=== PATIENT | male | born 1975 | race Caucasian/White ===

== ENCOUNTER 2020-09-30 13:35 | Emergency (ER) | payer MEDICAID, SELFPAY ==
--- NOTE | ~2020-09-30 | XR_ITS ---
EXAMINATION: XR CHEST CLINICAL INFORMATION: Shortness of breath COMPARISON: None TECHNIQUE: Frontal view of the chest was obtained. FINDINGS: The cardiac silhouette is appears upper normal in size. This may be related to apical lordotic film technique. There is an abnormal left paraspinal soft tissue density adjacent to the lower thoracic spine. Hilar and mediastinal contours are otherwise unremarkable. The lungs are clear. There is no pleural effusion or pneumothorax. Degenerative changes of the thoracic spine. XR/XR chest 1V IMPRESSION: Upper normal-size cardiac silhouette. This may be due to apical lordotic film technique. Question abnormal left paraspinal density. Follow-up PA and lateral chest x-ray recommended.
--- NOTE | ~2020-09-30 | XR_ITS ---
EXAMINATION: XR CHEST CLINICAL INFORMATION: Follow-up abnormal PA chest x-ray. Shortness of breath. COMPARISON: AP portable chest x-ray from earlier the same day TECHNIQUE: 2 views of the chest were obtained. FINDINGS: The cardiac and mediastinal contours are normal. The lungs are clear. There is no pleural effusion or pneumothorax. There are degenerative changes of the thoracic spine. Bony structures are otherwise unremarkable. XR/XR chest 2V IMPRESSION: Unremarkable examination.
[2020-09-30 14:01] VITALS: BP 150/92; PULSE 63; RESP 18; TEMP 36.8; O2SAT 95; BMI 41.1
[2020-09-30 14:40] LABS: MANUAL DIFF FLAG NO
[2020-09-30 14:42] LABS: Basophils Percent Auto 0.6 % (0-2); Eosinophils Absolute Auto 0.2 X10*3/uL (0.0-0.4); Eosinophils Percent Auto 2.9 % (0-4); Hematocrit 47.9 % (42-52); Hemoglobin 16.1 g/dl (14.0-18.0); Imm Gran Abs Auto 0.03 X10*3/uL (0.00-0.03); Imm Gran Pct Auto 0.4 % (0.0-0.4); Lymphocytes Percent Auto 29.9 % (20-40); Mean Corpuscular HGB Conc 33.6 g/dl (31.0-36.0); Mean Corpuscular Hemoglobin 30.4 pg (27.0-33.0); Mean Corpuscular Volume 90.4 fL (80-98); Monocytes Absolute Auto 0.6 X10*3/uL (0.1-1.2); Neutrophils Absolute Auto 3.9 X10*3/uL (2.0-8.3); Neutrophils Percent Auto 57.2 % (45-73); Platelet Count 258 X10*3/uL (160-400); Red Cell Distribution Width 12.4 % (11.0-16.0); White Blood Count 6.8 X10*3/uL (4.8-10.8)
[2020-09-30 15:07] LABS: Anion Gap 11 (12-20); Blood Urea Nitrogen 15 mg/dL (9-16); Calcium 9.2 mg/dL (8.4-10.2); Carbon Dioxide 27 mmol/L (22-29); Chloride 106 mmol/L (96-108); Creatinine Clr Calc Pharmacy 118.1; Estimated Glomerular Filt Rate > 60; Glucose Random 96 mg/dL (60-115); Sodium 140 mmol/L (135-145)
[2020-09-30 15:14] LABS: Troponin-I High Sensitivity 3.7 ng/L (<3.5-35.0)
[2020-09-30 15:57] VITALS: BP 149/87; PULSE 55; RESP 18
--- NOTE | 2020-09-30 16:02 | ED.GENADULT ---
HPI - General Adult General Chief complaint: General Medical Stated complaint: HIGH BP Time Seen by Provider: 09/30/20 15:52 Source: patient Mode of arrival: ambulatory History of Present Illness HPI narrative: 45-year-old male with no significant past medical history sent to ED by PCP for hypertension. Patient reports elevated blood pressure during offices visits in the past, decided to check blood pressure with home machine yesterday was 180s/110, this morning again was 190s/110 and was instructed to come to ED. Reports intermittent headaches x6 months, and mild SOB. Denies headache at present. Denies visual change/loss, lightheadedness/dizziness, chest pain, cough, abdominal pain, nausea/vomiting, LE edema Related Data Previous Rx's Medication Instructions Recorded hydrochlorothiazide 12.5 mg PO DAILY #14 cap 09/30/20 Allergies Allergy/AdvReac Type Severity Reaction Status Date / Time naproxen [NAPROXEN] Allergy Unknown UNKNOWN Unverified 11/30/19 19:41 Review of Systems Review of Systems: Constitutional: No Fever, No Chills, No Fatigue, No Malaise ENT/Mouth: No Ear Pain, No Nasal Congestion Eyes: No Eye Pain, No Vision Changes Cardiovascular: No Chest Pain, + SOB, No Edema, No Palpitations Respiratory: No Cough, No Sputum Gastrointestinal: No Nausea, No Vomiting, No Diarrhea, No Constipation, No Abdominal pain Genitourinary: No Dysuria, No Hematuria Musculoskeletal: No joint pain, No Myalgias, No Joint Swelling Skin: No Skin Lesions, No rash Neuro: No Weakness, No Numbness, No Paresthesias, No Dizziness, + Headache (not at present) Yes all other systems are reviewed and are negative Neurologic: Denies Abnormal speech present COUNT INCLUDES THE [facility] Past Medical History Attestation statement: The following information was validated with the patient. Social History Social History Advance Directives: No Advance Directives Information Provided: Yes Physical Exam Vital Signs: Vital Signs: Last Vital Signs Temp 98.2 F 09/30/20 14:01 Pulse 56 09/30/20 17:02 Resp 16 09/30/20 17:02 BP 155/91 H 09/30/20 17:02 Pulse Ox 95 09/30/20 17:02 Body Mass Index 41.1 Const: General: cooperative, healthy appearing, no acute distress, well developed, alert and awake Orientation/consciousness: patient oriented x3 Limitations: no limitations HENMT: Head: Yes normal to inspection Ears: hearing grossly normal bilaterally General nose exam: Normal external nose present Face and sinus: Yes normal facial exam Eyes: General: appearance normal, both eyes and all related structures EOM: EOMs intact bilaterally Neck: Neck: Yes normal visual inspection and Yes no meningeal signs Resp: Effort & Inspection: normal respiratory effort Auscultation: clear to auscultation bilaterally, no rales, no rhonchi and no wheezes Cardio: Rate: regular rate Heart sounds: S1 normal heart sound present and S2 normal heart sound present GI: Inspection: Yes normal to inspection Palpation (GI): Soft to palpation, nontender, no guarding and not rigid Skin: Rashes: no rashes Wounds: no wounds Neuro: General: patient oriented x3, gait normal, tone normal, moves all extremities, no meningeal signs, no focal motor deficits and CN's II-XI intact bilaterally Cranial nerves: Yes CN's II-XII intact bilaterally Cognition (Neuro): normal cognition Speech: No Abnormal speech present Gait exam (Neuro): Normal gait present Motor exam (neuro): 5/5 motor strength present throughout Extrem: General: Yes normal to inspection and Yes no pedal edema Course Course Course Narrative: -labs unremarkable including negative troponin -CXR negative 1706-XR chest 1V IMPRESSION: Upper normal-size cardiac silhouette. This may be due to apical lordotic film technique. Question abnormal left paraspinal density. Follow-up PA and lateral chest x-ray recommended. > will obtain two view CXR --ED care transferred to JAC[facility] Roman pending CXR results and anticipated DC home Medical Decision Making [facility] Narrative Medical decision making narrative: 45-year-old male with no significant past medical history sent to ED by PCP for hypertension. Patient reports elevated blood pressure during offices visits in the past, decided to check blood pressure with home machine yesterday was 180s/110, this morning again was 190s/110 and was instructed to come to ED. On exam blood pressure 150/90, NAD, nontoxic appearing, no focal neuro deficits/ambulating with steady gait. Low concern for hypertensive urgency/emergency. Will obtain basic labs to rule out infectious etiology/ACS and likely initiate antihypertensive Lab Data Result diagrams: 09/30/20 14:37 09/30/20 14:37 Labs: Lab Results 09/30/20 09/30/20 09/30/20 Range/Units 14:37 14:37 14:37 WBC 6.8 (4.8-10.8) X10*3/uL RBC 5.30 (4.60-5.80) X10*6/uL Hgb 16.1 (14.0-18.0) g/dl Hct 47.9 (42-52) % MCV 90.4 (80-98) fL MCH 30.4 (27.0-33.0) pg MCHC 33.6 (31.0-36.0) g/dl RDW 12.4 (11.0-16.0) % Plt Count 258 (160-400) X10*3/uL MPV 10.0 (9.4-12.4) fL Immature Gran % (Auto) 0.4 (0.0-0.4) % Neut % (Auto) 57.2 (45-73) % Lymph % (Auto) 29.9 (20-40) % Ellis % (Auto) 9.0 (2-11) % Eos % (Auto) 2.9 (0-4) % Baso % (Auto) 0.6 (0-2) % Lymph # (Auto) 2.0 (1.2-4.9) X10*3/uL Ellis # (Auto) 0.6 (0.1-1.2) X10*3/uL Eos # (Auto) 0.2 (0.0-0.4) X10*3/uL Baso # (Auto) 0.0 (0.0-0.2) X10*3/uL Abs Immat Gran (auto) 0.03 (0.00-0.03) X10*3/uL Absolute Neuts (auto) 3.9 (2.0-8.3) X10*3/uL Absolute Nucleated RBC 0.000 (0.0-0.012) X10*3/uL Nucleated RBC % (auto) 0.0 (0.0-0.2) /100WBC Sodium 140 (135-145) mmol/L Potassium 4.0 (3.3-5.1) mmol/L Chloride 106 (96-108) mmol/L Carbon Dioxide 27 (22-29) mmol/L Anion Gap 11 L (12-20) BUN 15 (9-16) mg/dL Creatinine 1.07 (0.5-1.4) mg/dL Estim Creat Clear Calc 118.1 Estimated GFR > 60 Random Glucose 96 (60-115) mg/dL Calcium 9.2 (8.4-10.2) mg/dL Magnesium 2.1 (1.6-2.6) mg/dL Total Bilirubin 0.6 (0.0-1.0) mg/dL Direct Bilirubin 0.2 (0.0-0.5) mg/dL AST 21 (5-37) U/L ALT 28 (0-40) U/L Alkaline Phosphatase 76 (39-117) U/L Troponin I High Sens 3.7 (<3.5-35.0) ng/L B-Natriuretic Peptide 57 (<100) pg/mL Total Protein 7.3 (6.5-8.0) g/dL Albumin 4.4 (3.5-5.0) g/dL Discharge Plan Discharge Clinical Impression: Hypertension Patient Disposition: Home, Self-Care Instructions: Hypertension (ED) Additional Instructions: Your blood work was unremarkable today in the emergency department Your blood pressure is elevated, hydrochlorothiazide is an antihypertensive medication, take as prescribed It is important for you to closely monitor your blood pressure, you need to see your primary care doctor in the next couple days If her blood pressure is continuously high, or continues staying low please return to the emergency department If you develop chest pain, shortness of breath, fever, swelling in her legs, lightheadedness/dizziness, return to the ED Prescriptions: New hydrochlorothiazide 12.5 mg capsule 12.5 mg PO DAILY Qty: 14 RF: 0 Referrals: Giovany Reaves MD [Primary Care Provider] - 2 days
[2020-09-30 16:30] LABS: Alanine Aminotransferase 28 U/L (0-40); Albumin Level 4.4 g/dL (3.5-5.0); Alkaline Phosphatase 76 U/L (39-117); Aspartate Amino Transferase 21 U/L (5-37); Bilirubin Direct 0.2 mg/dL (0.0-0.5); Bilirubin Total 0.6 mg/dL (0.0-1.0); Magnesium 2.1 mg/dL (1.6-2.6); Total Protein 7.3 g/dL (6.5-8.0)
[2020-09-30 16:36] LABS: B Type Natriuretic Peptide 57 pg/mL (<100)
[2020-09-30 17:02] VITALS: BP 155/91; PULSE 56; RESP 16; O2SAT 95
== END 2020-09-30 18:03 | disposition home or self-care (01) ==
PROVIDERS: Physician Assistant; Emergency Provider Emergency Medicine; PCP Internal Medicine
DX: I10 Essential (primary) hypertension (principal); R06.02 Shortness of breath
CPT/HCPCS: 36415; 71045; 71046; 80048; 80076; 83735; 83880; 84484; 85025; 99284

== ENCOUNTER 2021-07-23 09:26 | Emergency (ER) | payer OTHER, SELFPAY ==
[2021-07-23 09:39] VITALS: BP 130/91; PULSE 71; RESP 16; TEMP 36.2; O2SAT 97; BMI 43.0
--- NOTE | 2021-07-23 11:06 | ED_ITS ---
HPI - Back Pain/Injury General Chief Complaint: Back Pain/Injury Stated Complaint: back pain needs inflamatory injection Time Seen by Provider: 07/23/21 11:00 Source: patient Mode of arrival: ambulatory Limitations: no limitations History of Present Illness HPI Narrative: 46-year-old male with a past medical history of chronic back pain with herniated discs and old fractures approximately 3 years ago from a fall presenting to the ED complaining of acute on chronic lower back pain radiating to his right buttock/leg for the past few days worse today. Reports he has been taking [id number] medication no symptomatic relief. Reports this is similar to his prior back pain. He denies any fevers, chills, dizziness, headaches, neck pain/stiffness, trouble swallowing or breathing, chest pain or shortness of breath, dyspnea on exertion, orthopnea, palpitations, paresthesias, nausea/vomiting/diarrhea or constipation, black or bloody stools, abdominal pain, saddle anesthesia, urinary or bowel incontinence or retention, falls, rashes, IV drug use or any other symptoms complaints or concerns at this time. Reports that Toradol usually helps and he just wanted a Toradol injection. Denies any other symptoms complaints or concerns at this time. MD elicited complaint: back pain Pertinent past history: prior back pain Onset (ago): day(s) (Past few days worse today) Timing: constant and progressively worsening Severity: moderate Similar Symptoms Previously: Yes Quality: aching and spasming Location: lumbar spine Radiation: buttocks and right upper leg Exacerbating factors: movement, walking and lifting Relieving factors: none Context: unknown Associated symptoms: denies other symptoms Work related injury: No Related Data Previous Rx's Medication Instructions Recorded hydrochlorothiazide 12.5 mg capsule 12.5 mg PO DAILY #14 cap 09/30/20 ketorolac 10 mg tablet 10 mg PO Q8H PRN #14 tab 07/23/21 Allergies Allergy/AdvReac Type Severity Reaction Status Date / Time naproxen [NAPROXEN] Allergy Unknown UNKNOWN Verified 07/23/21 09:39 Review of Systems Review of Systems: Constitutional : No trauma, No Weight loss, No Fever, No Chills, ENT/Mouth : No Hearing loss, No Ear Pain, No Nasal Congestion, No Sinus Pain, No Hoarseness, No sore throat, No Rhinorrhea, No Swallowing Difficulty Cardiovascular : No Chest Pain, No SOB Respiratory : No Cough, No Dyspnea Gastrointestinal : No Nausea, No Vomiting, No Diarrhea, No abdominal Pain, No Hematochezia, No Melena Genitourinary : No Dysuria, No Urinary Frequency, No Hematuria, No Urinary or Bowel Incontinence/retention Musculoskeletal : + Back pain, No neck pain, No joint stiffness, No joint swelling Skin : No Skin Lesions, No rash or signs of infection Neuro : No Weakness, No radiation, No Numbness, No Paresthesias, No headache, no loss of bowel or bladder incontinence, no saddle anesthesia, Focal weakness, No radiation Denies history of IV drug usage. Yes all other systems are reviewed and are negative [facility] Past Medical History Attestation statement: The following information was validated with the patient. Medical History Back disorder HTN (hypertension) Social History Social History Advance Directives: No Advance Directives Information Provided: No Physical Exam Vital Signs: Vital Signs: Last Vital Signs Temp 97.1 F 07/23/21 09:39 Pulse 71 07/23/21 09:39 Resp 16 07/23/21 09:39 BP 130/91 H 07/23/21 09:39 Pulse Ox 97 07/23/21 09:39 BMI result Body Mass Index 43.0 vital signs have been reviewed as normal and appeared to be correct. Blood pressure normal. Heart rate normal. Respiration rate normal. Temperature normal. Oxygen saturation normal. Appearance: Alert. Oriented X3. No acute distress. Head: Normal external exam. Normocephalic. Atraumatic. No Lane signs noted. No raccoon eyes noted Eyes: PERRLA. EOMI. Conjunctiva and sclera normal. Eyelids normal. ENT: EAC normal. TM's Normal. Pharynx normal. Uvula midline. Moist mucous membranes. No trismus noted. No drooling noted. No muffled voice noted. Neck: Normal inspection. Neck supple. FROM. No adenopathy. Thyroid Normal. No meningeal signs. No neck mass noted. CVS: Normal heart rate and rhythm. Heart sound normal. No murmurs noted. Pulses normal throughout. Respiratory: No respiratory distress. Painless inspiration. Breath sounds normal. No wheezes/rales/rhonchi noted. Chest nontender. No accessory muscle usage noted or decreased air movement noted. Abdomen: Soft and nontender. Bowel sounds normal in all 4 quadrants. No distention noted. No organomegaly noted. No visible injury noted. Back: No CVA tenderness. Full range of motion noted. No obvious deformities, or edema. Mild para-spinal muscular tenderness from lumbar region to coccyx. Full ROM in back and lower extremities. 5/5 strength hip extension/flexion, abduction, adduction. Mild Lumbar pain with hip flexion against resistance. St raight leg raise test negative on right; Straight leg raise test negative on left; Reflexes normal ankle and knee bilaterally; EHL motor strength normal bilaterally. No rashes/lesion/induration/fluctuance or signs infection noted. Skin: Skin warm and dry. Normal skin color. Normal skin turgor. No rashes/lesions/lacerations noted. Extremities: No lower extremity edema. Extremities exhibit normal range of motion. Extremities nontender. Neuro: Oriented X 3. No motor deficit. No sensory deficit. Reflexes normal. Patient has a normal steady gait. Course Course Course Narrative: Pt c likely muscular pain, but could be herniated disc. Neuro exam shows no deficits. Not c/w AAA/epidural abscess/dissection.No high risk Hx (Incont, fever, immunosupp, recent surgery/LP, coag, signif trauma, wt loss, puls mass, hx/o Ca, TB, or IVDU) to warrant MRI/CT today. Not c/w Pyelo/UTI/kidney stone/ spinal fx. Not cauda equina syndrome. Imaging not currently indicated. DC c meds and f/u. MDM - Back Pain/Injury Medical Records Attestation: I reviewed the patient's medical records. Discharge Plan Discharge Clinical Impression: Lumbar radiculopathy, Chronic back pain Patient Disposition: Home, Self-Care Instructions: Lumbar Radiculopathy (ED), Lower Back Exercises (ED) Prescriptions: New ketorolac 10 mg tablet 10 mg PO Q8H PRN (Reason: pain of back) Qty: 14 0RF Rx Instructions: Patient given 1st dose in the ED by IM and tolerated well No Action hydrochlorothiazide 12.5 mg capsule 12.5 mg PO DAILY Qty: 14 0RF Referrals: Physician,Unknown J [Primary Care Provider] - 2 days (your pcp)
[2021-07-23] MEDS: Ketorolac Tromethamine 60 MG/2 ML VIAL IM (11:10)
== END 2021-07-23 11:18 | disposition home or self-care (01) ==
PROVIDERS: Emergency Provider Emergency Medicine
DX: M54.16 Radiculopathy, lumbar region (principal); M54.50 Low back pain, unspecified; Z79.899 Other long term (current) drug therapy
CPT/HCPCS: 96372; 99284; J1885

== ENCOUNTER → 2023-03-01 15:31 | Outpatient (BNVA) | payer OTHER, SELFPAY | PROVIDERS: PCP Family Medicine; Visit Provider Physician Assistant ==

== ENCOUNTER 2023-03-03 08:04 | Outpatient (AMB) | payer OTHER, SELFPAY ==
--- NOTE | 2023-03-03 09:42 | MHC.OFFVISWM ---
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 HPI Details Start time: 9.30am, End time: 10.27am ?I spent 52 minutes speaking with the patient on the phone plus an additional 5 minutes reviewing and updating records for a total of 57 minutes HPI Comments History of Present Illness Details Previous weight loss efforts: low carb diet, calorie counting Wakes up: Week days 5.45am and weekends: 7.30am, Sleeps: week days: 9.30pm-10pm, weekends: 12am Breakfast: skips Lunch: 12-1pm (fast food) Dinner: 5pm (potato salad, sandwich, rice and beans, pasta) snacks: 7-8pm (cookies or cupcake) Exercise: none Fluids: Coffee 12oz/d (creamer), tea: none, soda: regular coke or pepsi, juice: daily, ETOH: on Fridays 2 beers PFSH Medical History (Updated 03/03/23 @ 09:48 by Joseph Reis MD) Insomnia Sleep apnea Morbid obesity Back disorder HTN (hypertension) Physical Exam Vital Signs: BMI result Body Mass Index 45.6 Assessment & Plan Assessment & Plan (1) Morbid obesity: Code(s): E66.01 - Morbid (severe) obesity due to excess calories Plan: 1.? Plan for lap sleeve gastrectomy. If diaphragmatic or ventral hernias are present at time of surgery, these will be repaired laparoscopically as well. Risks and complications were discussed in detail including possible conversion to an open procedure, anastomotic leak, bleeding requiring transfusion, small bowel obstruction, , DVT and pulmonary embolism, cardiac, or pulmonary complications, as computer terminal operator complications such as anastomotic ulcer, insufficient weight loss and vitamin deficiencies. I emphasized the importance of close follow-up, adherence to instructions and good communication. 2. Nutritional counseling. A) BUSINESS DAYS: Start with ONE CELEBRATE REBUILD protein shake (ONE scoop in 8oz almond milk, buy at [facility] [employer]) at 6am-8am, 3 Celebrate protein bars (buy at [facility] [employer]) at 9am-11am, 12pm-2pm and 3pm-5pm, dinner at 6pm (12 forks of protein and 12 forks of salad/vegetables) and one Isopure INFUSIONS protein shake (HALF scoop in 8oz water, buy at [facility]) at 8pm-10pm. B) WEEKENDS: Start with ONE CELEBRATE REBUILD protein shake (ONE scoop in 8oz almond milk, buy at [facility] [employer]) at 8am-10am, 2 Celebrate protein bars (buy at [facility] [employer]) at 11am-1pm and 2pm-4pm, dinner at 5pm (12 forks of protein and 12 forks of salad/vegetables), one Isopure INFUSIONS protein shake (HALF scoop in 8oz water) at 7pm-9pm and one more Celebrate bar at 10pm-12am. So you do 2 protein shakes, 3 protein bars and one meal per day. Meal to include lean meat (beef, fish, pork, turkey, chicken), or tuvaluan yogurt, or egg whites, or beans with a salad with olive oil and fruits (berries, pears, apples, kiwi). Avoid salt, breads, potatoes, rice, pasta, desserts. 3. Each shake would be drunk slowly, like coffee in a period of 2 hours. 4. Cut each bar in 4 pieces and eat each piece in 30min ?to make each bar last 2 hours. 5. I emphasized the importance of measuring accurately the food portion and measure it when serving the food in plate 6. The meal portions include 12 full-size forks of meat and 12 full-size forks of salad. You always eat the meat portion but you can replace up to 6 forks for salad/vegetables with rice, potatoes or pasta, or a fruit ?if you like. The less you do it the better weight loss will be. 7. One full-size fork is what it can be scooped on the fork without falling aside and not what can be bit with the fork. Use regular forks like those you find in a typical restaurant. 8.? Please send me weight measurements as soon as possible and then once a week. Always include your diet and exercise plan. 9. Start walking outside daily, tracking calories with a goal of 300 calories per day, daily. Goal is to burn 2000 calories per week on exercise, which means either 300 calories daily, or 400 calories 5 days per week, or 500 calories 4 days per week, or 650 calories 3 days per week. 10. The best choice would be to purchase a stationary bike, elliptical or treadmill at home that can track calories. Let me know if you do so I can give you an exercise plan. 11.?Goal is to lose at least 1.5-2lbs per week 12. Goal to lose 10% of your weight before surgery, which is about 30lbs. Ultimate weight goal: 274lbs before surgery 13. Please follow the diet plan exactly without any change. If you don't like something about the plan or you feel hungry you need to communicate with me so I can help you revise the plan. You should not change the plan yourself. Orders: Orders Hemoglobin A1c Today E66.01 - Morbid (severe) obesity due to excess calories, G47.30 - Sleep apnea, unspecified, I10 - Essential (primary) hypertension H Pylori Breath Test Today E66.01 - Morbid (severe) obesity due to excess calories, G47.30 - Sleep apnea, unspecified, I10 - Essential (primary) hypertension Vitamin B1 Today E66.01 - Morbid (severe) obesity due to excess calories, G47.30 - Sleep apnea, unspecified, I10 - Essential (primary) hypertension Vitamin A Today E66.01 - Morbid (severe) obesity due to excess calories, G47.30 - Sleep apnea, unspecified, I10 - Essential (primary) hypertension TSH reflex Free T4 Today E66.01 - Morbid (severe) obesity due to excess calories, G47.30 - Sleep apnea, unspecified, I10 - Essential (primary) hypertension Ferritin Today E66.01 - Morbid (severe) obesity due to excess calories, G47.30 - Sleep apnea, unspecified, I10 - Essential (primary) hypertension Vitamin D 25-OH Total Today E66.01 - Morbid (severe) obesity due to excess calories, G47.30 - Sleep apnea, unspecified, I10 - Essential (primary) hypertension US abdomen comp w elastography Today E66.01 - Morbid (severe) obesity due to excess calories, G47.30 - Sleep apnea, unspecified, I10 - Essential (primary) hypertension Insulin Today E66.01 - Morbid (severe) obesity due to excess calories, G47.30 - Sleep apnea, unspecified, I10 - Essential (primary) hypertension Complete Blood Count Auto Diff Today E66.01 - Morbid (severe) obesity due to excess calories, G47.30 - Sleep apnea, unspecified, I10 - Essential (primary) hypertension Lipid Panel Today E66.01 - Morbid (severe) obesity due to excess calories, G47.30 - Sleep apnea, unspecified, I10 - Essential (primary) hypertension IRON PROFILE Today E66.01 - Morbid (severe) obesity due to excess calories, G47.30 - Sleep apnea, unspecified, I10 - Essential (primary) hypertension Comprehensive Met. Panel Today E66.01 - Morbid (severe) obesity due to excess calories, G47.30 - Sleep apnea, unspecified, I10 - Essential (primary) hypertension Vitamin B12 and Folate Today E66.01 - Morbid (severe) obesity due to excess calories, G47.30 - Sleep apnea, unspecified, I10 - Essential (primary) hypertension Zinc Today E66.01 - Morbid (severe) obesity due to excess calories, G47.30 - Sleep apnea, unspecified, I10 - Essential (primary) hypertension C Reactive Protein Today E66.01 - Morbid (severe) obesity due to excess calories, G47.30 - Sleep apnea, unspecified, I10 - Essential (primary) hypertension XR chest 2V Today E66.01 - Morbid (severe) obesity due to excess calories, G47.30 - Sleep apnea, unspecified, I10 - Essential (primary) hypertension ECG 12 lead EKG Today E66.01 - Morbid (severe) obesity due to excess calories, G47.30 - Sleep apnea, unspecified, I10 - Essential (primary) hypertension FL upper GI w air Today E66.01 - Morbid (severe) obesity due to excess calories, G47.30 - Sleep apnea, unspecified, I10 - Essential (primary) hypertension RT home sleep study Today E66.01 - Morbid (severe) obesity due to excess calories, G47.30 - Sleep apnea, unspecified, I10 - Essential (primary) hypertension Referrals Behavioral Health Referral E66.01 - Morbid (severe) obesity due to excess calories, G47.30 - Sleep apnea, unspecified, I10 - Essential (primary) hypertension Nutrition/Dietitian Referral E66.01 - Morbid (severe) obesity due to excess calories, G47.30 - Sleep apnea, unspecified, I10 - Essential (primary) hypertension Telehealth Telehealth Location of provider rendering services: practice address Location of patient: address on file Patient Identification confirmed using: Name, : Yes Telehealth method: voice only Patient verbally consented to treatment: Yes Patient verbally consented to billing insurance company: Yes Patient informed of any privacy concerns related to visit: Yes Minutes spent on Phone/Video with Pt.: 57 Coding Level of Care Code Tele New Pt Level 4 (94990) Diagnoses Morbid obesity E66.01 Time Spent (min) 57
[2023-03-03 09:57] VITALS: BMI 45.6
== END 2023-03-03 10:28 | disposition home or self-care (01) ==
PROVIDERS: PCP Family Medicine; Visit Provider Surgery
DX: E66.01 Morbid (severe) obesity due to excess calories (principal)
CPT/HCPCS: 99204

== ENCOUNTER → 2023-03-03 08:04 | Outpatient (BNVA) | payer OTHER, SELFPAY | PROVIDERS: PCP Family Medicine; Visit Provider Surgery ==

== ENCOUNTER 2023-03-18 13:51 | Outpatient (AMB) | payer OTHER, SELFPAY ==
--- NOTE | 2023-03-18 13:21 | MHC.AMNUTRGE ---
Intake Intake Visit Reasons: VIDEO Initial Nutrition [facility] Hand Picker Required: No Allergies naproxen [NAPROXEN] Allergy (Unknown, Verified 03/03/23 09:43) UNKNOWN HPI Nutrition Presentation Reason for consult elevated BMI Diet Assmnt Details Pt repots doing well with his nutrition plan from surgeon. no complaints or concerns . has questions about post op expectations which were answered today. Is a single father to 15 year old son who pt states has some mental health issues. pt reports his brother had bariatric surgery 5 years ago, not doing very well experiences vomiting when eating wrong foods. 5 years ago back injury - 1.5 years of being rather immobile and gained weight. 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 of fast food Exercise: minimal now due to lifestyle work hours etc but is motivated [facility] online classes: none yet Dietary counseling reduction Who buys your food self Who prepares/cooks your food self Meal frequency regular: lunch (fast food), dinner (quick - pasta or rice ) and snacks (evening ) and never: breakfast Lifestyle Eating out 4 or more times/week Exercise Yes Food frequency Fruit: daily, Vegetables: daily, Grains/pasta/breads/cereal (carbs): daily, Meats/poultry/fish (protein): daily, Meat substitutes/nuts/seeds/legumes: daily, Processed foods/meats: daily, Restaurants/fast foods: daily, Water: daily, Soda: daily, Juice: daily, Coffee: daily and Alcohol: several times weekly Diagnosis Nutrition problem #1 overweight/obesity As related to (etiology) #1 excess energy intake and physical inactivity As evidenced by (sign/symptom) #1 high BMI Monitoring/Goals Nutrition problem monitoring total energy intake, level of knowledge/skill, total PRO intake, total CHO intake and weight Outcome progress progressing Learning/Education Readiness to learn excellent Stages of change action Educational materials provided Yes Most Recent Diabetes Results: Creatinine 1.07 mg/dL (0.5-1.4) 09/30/20 Blood Urea Nitrogen 15 mg/dL (9-16) 09/30/20 Sodium 140 mmol/L (135-145) 09/30/20 Potassium 4.0 mmol/L (3.3-5.1) 09/30/20 Chloride 106 mmol/L (96-108) 09/30/20 Carbon Dioxide 27 mmol/L (22-29) 09/30/20 Calcium 9.2 mg/dL (8.4-10.2) 09/30/20 AST 21 U/L (5-37) 09/30/20 ALT 28 U/L (0-40) 09/30/20 Total Protein 7.3 g/dL (6.5-8.0) 09/30/20 Albumin 4.4 g/dL (3.5-5.0) 09/30/20 [facility] Medical History (Updated 03/03/23 @ 09:48 by Joseph Reis MD) Insomnia Sleep apnea Morbid obesity Back disorder HTN (hypertension) Assessment & Plan Assessment & Plan (1) Morbid obesity: Code(s): E66.01 - Morbid (severe) obesity due to excess calories Plan doing great, is motivated and committed . will be seen again after completion of classes - 04/13 at 1:30 Telehealth Telehealth Location of provider rendering services: practice address Location of patient: address on file Patient Identification confirmed using: Name, : Yes Telehealth method: voice only Patient verbally consented to treatment: Yes Patient verbally consented to billing insurance company: Yes Patient informed of any privacy concerns related to visit: Yes Minutes spent on Phone/Video with Pt.: 30 Coding Level of Care Code Nutr Indiv Intake (45436) Diagnoses Morbid obesity E66.01 Time Spent (min) 30
== END 2023-03-18 13:53 | disposition home or self-care (01) ==
LOC: HO.HBS 13:51
PROVIDERS: PCP Family Medicine; Visit Provider Dietitian, Registered
DX: E66.01 Morbid (severe) obesity due to excess calories (principal)

== ENCOUNTER → 2023-03-18 13:51 | Outpatient (BNVA) | payer OTHER, SELFPAY | PROVIDERS: PCP Family Medicine; Visit Provider Dietitian, Registered | DX: E66.01 Morbid (severe) obesity due to excess calories (principal) | CPT/HCPCS: 97802 ==

== ENCOUNTER 2023-03-19 07:32 | Outpatient (REF) | payer OTHER, SELFPAY ==
--- NOTE | ~2023-03-19 | XR_ITS ---
EXAMINATION: XR CHEST CLINICAL INFORMATION: Morbid obesity COMPARISON: Chest x-ray on 09/30/2020 TECHNIQUE: 2 views of the chest were obtained. FINDINGS: vascularity. LUNGS: Lungs are clear. No pneumothorax is seen. BONES: Bony skeleton is intact. XR/XR chest 2V IMPRESSION: Unchanged Normal chest x-ray.
[2023-03-19 08:01] LABS: MANUAL DIFF FLAG NO
[2023-03-19 08:16] LABS: Basophils Percent Auto 0.7 % (0-2); Eosinophils Absolute Auto 0.1 X10*3/uL (0.0-0.4); Eosinophils Percent Auto 1.9 % (0-4); Imm Gran Abs Auto 0.04 X10*3/uL (0.00-0.03); Imm Gran Pct Auto 0.7 % (0.0-0.4); Lymphocytes Absolute Auto 1.9 X10*3/uL (1.2-4.9); Mean Corpuscular HGB Conc 34.8 g/dl (31.0-36.0); Mean Corpuscular Hemoglobin 30.4 pg (27.0-33.0); Mean Corpuscular Volume 87.5 fL (80.0-98.0); Mean Platelet Volume 11.1 fL (9.4-12.4); Monocytes Absolute Auto 0.5 X10*3/uL (0.1-1.2); Monocytes Percent Auto 8.3 % (2-11); Neutrophils Absolute Auto 3.2 x10*3/uL (2.0-8.3); Neutrophils Percent Auto 55.4 % (45-73); Platelet Count 221 X10*3/uL (160-400); Red Blood Count 5.26 X10*6/uL (4.60-5.80); Red Cell Distribution Width 12.2 % (11.0-16.0); White Blood Count 5.8 X10*3/uL (4.8-10.8)
[2023-03-19 09:06] LABS: Alanine Aminotransferase 43 U/L (0-40); Albumin Level 4.2 g/dL (3.5-5.0); Alkaline Phosphatase 64 U/L (39-117); Anion Gap 13 (12-20); Aspartate Amino Transferase 31 U/L (5-37); Bilirubin Total 0.4 mg/dL (0.0-1.0); Blood Urea Nitrogen 20 mg/dL (9-16); C Reactive Protein < 0.10 mg/dL (< or = 0.50); Calcium 9.1 mg/dL (8.4-10.2); Carbon Dioxide 26 mmol/L (22-29); Chloride 107 mmol/L (96-108); Cholesterol 179 mg/dL (<200); Estimated Glomerular Filt Rate > 60; Glucose Random 107 mg/dL (60-115); HDL Cholesterol 40 mg/dL (>40); Iron 87 mcg/dL (45-160); LDL Cholesterol Calculated 124 mg/dL (<100); Percent Iron Saturation 34 % (15-50); Potassium 3.8 mmol/L (3.3-5.1); Sodium 142 mmol/L (135-145); Total Iron Binding Capacity 256 mcg/dL (228-428); Total Protein 7.4 g/dL (6.5-8.0); Triglycerides 77 mg/dL (<150); Unsaturated Iron Binding 169 ug/dL
[2023-03-19 09:23] LABS: Ferritin 135 ng/mL (20-250); Insulin 16 uU/mL (2-29); TSH reflex Free T4 1.17 uIU/mL (0.32-4.0); Vitamin D 25-OH Total 26.9 ng/mL (>30)
[2023-03-24 15:29] LABS: Zinc 75 mcg/dL (60-130)
[2023-03-25 05:39] LABS: Vitamin A 75 mcg/dL (38-98)
[2023-03-25 14:03] LABS: Vitamin B1 14 nmol/L (8-30)
== END 2023-03-19 07:33 | disposition home or self-care (01) ==
LOC: HO.XRAY 07:32
PROVIDERS: PCP Family Medicine; Visit Provider Surgery
DX: E66.01 Morbid (severe) obesity due to excess calories (principal); I10 Essential (primary) hypertension; G47.30 Sleep apnea, unspecified
CPT/HCPCS: 36415; 71046; 80053; 80061; 82306; 82607; 82728; 82746; 83036; 83525; 83540; 84425; 84443; 84590; 84630; 85025; 86140; 93005

== ENCOUNTER → 2023-03-19 07:40 | Outpatient (BNV) | payer OTHER, SELFPAY | PROVIDERS: PCP Family Medicine; Visit Provider Internal Medicine Cardiovascular Disease | DX: R00.1 Bradycardia, unspecified (principal) | CPT/HCPCS: 93010 ==

== ENCOUNTER 2023-03-22 08:23 | Outpatient (AMB) | payer OTHER, SELFPAY ==
--- NOTE | 2023-03-22 11:41 | MHC.OFFVISWM ---
Intake VS Expanded 03/22/23 11:42 Height 5 ft 8.5 in Weight 296 lb 6 oz BMI 44.4 Body Fat % 44.8 Body Fat Mass 132.8 Fat Free Mass 163.7 Intake Visit Reasons: TV Follow Up SWL - 1ST Allergies naproxen [NAPROXEN] Allergy (Unknown, Verified 03/03/23 09:43) UNKNOWN HPI TV Follow Up SWL - 1ST HPI Details Start time: 11.30am, End time: 11.50am ?I spent 15 minutes speaking with the patient on the phone plus an additional 5 minutes reviewing and updating records for a total of 20 minutes HPI Comments History of Present Illness Details Overall weight loss: 8.4lbs, or 2.76% TBWL Is doing ONE CELEBRATE REBUILD protein shake (ONE scoop in 8oz almond milk, [facility]) at 6am-8am, 3 Celebrate protein bars ([facility] at 9am-11am, 12pm-2pm and 3pm-5pm, dinner at 6pm (12 forks of protein and 12 forks of salad/vegetables) Exercise: Walking outside [facility] Medical History (Updated 03/19/23 @ 20:25 by Joseph Reis MD) Insomnia Sleep apnea Morbid obesity Back disorder HTN (hypertension) Assessment & Plan Assessment & Plan (1) Morbid obesity: Code(s): E66.01 - Morbid (severe) obesity due to excess calories Plan: 1. Continue same nutritional plan A) BUSINESS DAYS: Start with ONE CELEBRATE REBUILD protein shake (ONE scoop in 8oz almond milk, [facility]) at 6am-8am, 3 Celebrate protein bars ([facility]) at 9am-11am, 12pm-2pm and 3pm-5pm, dinner at 6pm (12 forks of protein and 12 forks of salad/vegetables) and one Isopure INFUSIONS protein shake (HALF scoop in 8oz water, buy at [employer]) at 8pm-10pm. B) WEEKENDS: Start with ONE CELEBRATE REBUILD protein shake (ONE scoop in 8oz almond milk, buy at [facility]) at 8am-10am, 2 Celebrate protein bars (buy at [facility]) at 11am-1pm and 2pm-4pm, dinner at 5pm (12 forks of protein and 12 forks of salad/vegetables), one Isopure INFUSIONS protein shake (HALF scoop in 8oz water) at 7pm-9pm and one more Celebrate bar at 10pm-12am. So you do 2 protein shakes, 3 protein bars and one meal per day. Meal to include lean meat (beef, fish, pork, turkey, chicken), or hungarian yogurt, or egg whites, or beans with a salad with olive oil and fruits (berries, pears, apples, kiwi). Avoid salt, breads, potatoes, rice, pasta, desserts. 2. Send me a picture of your meal daily after you measure it but before you eat it. 3. Each shake would be drunk slowly, like coffee in a period of 2 hours. 4. Cut each bar in 4 pieces and eat each piece in 30min ?to make each bar last 2 hours. 5. I emphasized the importance of measuring accurately the food portion and measure it when serving the food in plate 6. The meal portions include 12 full-size forks of meat and 12 full-size forks of salad. You always eat the meat portion but you can replace up to 6 forks for salad/vegetables with rice, potatoes or pasta, or a fruit ?if you like. The less you do it the better weight loss will be. 7. One full-size fork is what it can be scooped on the fork without falling aside and not what can be bit with the fork. Use regular forks like those you find in a typical restaurant. 8.? Please send me weight measurements weekly on Fridays 9. Start walking outside daily, tracking calories with a goal of 300 calories per day, daily. Goal is to burn 2000 calories per week on exercise, which means either 300 calories daily, or 400 calories 5 days per week, or 500 calories 4 days per week, or 650 calories 3 days per week. 10. The best choice would be to purchase a stationary bike, elliptical or treadmill at home that can track calories. Let me know if you do so I can give you an exercise plan. 11.?Goal is to lose at least 1.5-2lbs per week 12. Goal to lose 10% of your weight before surgery, which is about 30lbs. Ultimate weight goal: 274lbs before surgery 13. Please follow the diet plan exactly without any change. If you don't like something about the plan or you feel hungry you need to communicate with me so I can help you revise the plan. You should not change the plan yourself. Telehealth Telehealth Location of provider rendering services: practice address Location of patient: address on file Patient Identification confirmed using: Name, : Yes Telehealth method: voice only Patient verbally consented to treatment: Yes Patient verbally consented to billing insurance company: Yes Patient informed of any privacy concerns related to visit: Yes Minutes spent on Phone/Video with Pt.: 20 Coding Level of Care Code Tele Est Pt Level 3 (69337) Diagnoses Morbid obesity E66.01 Time Spent (min) 20
[2023-03-22 11:42] VITALS: BMI 44.4
== END 2023-03-22 11:51 | disposition home or self-care (01) ==
LOC: HO.HBS 08:23
PROVIDERS: PCP Family Medicine; Visit Provider Surgery
DX: E66.01 Morbid (severe) obesity due to excess calories (principal)
CPT/HCPCS: 99213

== ENCOUNTER → 2023-03-22 08:23 | Outpatient (BNVA) | payer OTHER, SELFPAY | PROVIDERS: PCP Family Medicine; Visit Provider Surgery ==

== ENCOUNTER 2023-04-06 | Outpatient (REF) | payer OTHER, SELFPAY ==
[2023-04-08 13:41] LABS: H Pylori Breath Test Negative (Negative)
== END 2023-04-06 00:01 | disposition home or self-care (01) ==
LOC: HO.LNP
PROVIDERS: Visit Provider Surgery
DX: E66.01 Morbid (severe) obesity due to excess calories (principal); I10 Essential (primary) hypertension; G47.30 Sleep apnea, unspecified
CPT/HCPCS: 83013

== ENCOUNTER 2023-04-06 07:41 | Outpatient (REF) | payer OTHER, SELFPAY ==
--- NOTE | ~2023-04-06 | US_ITS ---
EXAMINATION: US COMPLETE ABDOMEN WITH LIVER ELASTOGRAPHY CLINICAL INFORMATION: COMPARISON: None available. TECHNIQUE: Real-time imaging of the abdominal viscera. Noninvasive ultrasound liver fibrosis assessment is performed using Janet ElastPQ point quantification shear wave elastography (2D-SWE) with a C5-2 MHz transducer. Multiple elastography samples are obtained. FINDINGS: PANCREAS: Normal. The visualized pancreatic head and body are normal in appearance. The remainder of the pancreas is obscured from visualization by the overlying bowel gas. ABDOMINAL AORTA: The proximal, middle, and distal aortic segments are normal in caliber. INFERIOR VENA CAVA: Visualized portions are normal. LIVER: Normal. The liver demonstrates normal size, contour and echogenicity. No focal lesion or intrahepatic biliary duct dilatation. The right lobe measures 16.0 cm in length. The left lobe measures 11.0 cm in length. Portal flow is towards the liver (hepatopetal). Shear wave liver elastography median stiffness is 1.35 m/s (reference: normal median stiffness is 1.3 m/s or less). IQR/median stiffness to assess sampling precision is 0.17 (reference: good quality data set is IQR/median stiffness of 0.15 or less). GALLBLADDER: Normal. The gallbladder is physiologically distended without evidence of stones, sludge, polyps, wall thickening or pericholecystic fluid. COMMON BILE DUCT: Normal in caliber measuring 0.2 cm in diameter. RIGHT KIDNEY: 1.0 and 1.3 cm interpolar parapelvic simple cysts are seen, which require no imaging follow-up. No hydronephrosis. No renal calculi or focal parenchymal lesions. The kidney measures 11.8 cm in maximum dimension. LEFT KIDNEY: A 1.4 cm interpolar parapelvic simple cyst is seen, which requires no imaging follow-up. No hydronephrosis. No renal calculi or focal parenchymal lesions. The kidney measures 13.4 cm in maximum dimension. SPLEEN: Normal. The spleen measures 10.8 cm in maximum dimension. FREE FLUID: None. US/US abdomen comp w elastography IMPRESSION: Liver elastography: Measurements are suggestive of compensated advanced chronic liver disease but need further test for confirmation. REFERENCE: Society of Radiologists in Ultrasound Liver Stiffness Thresholds (2020): LIVER STIFFNESS THRESHOLDS: *Liver Stiffness equal or less than 1.3 m/s: High probability of being normal. *Liver Stiffness less than 1.7 m/s: In the absence of other known clinical signs, rules out compensated advanced chronic liver disease. *Liver Stiffness 1.7-2.1 m/s: Suggestive of compensated advanced chronic liver disease but need further test for confirmation. *Liver Stiffness over 2.1 m/s: Rules in compensated advanced chronic liver disease. *Liver Stiffness over 2.4 m/s: Suggestive of clinically significant portal hypertension. QUALITY OF DATA SET: *IQR/Median value equal or less than 0.15 implies a quality data set. *IQR/Median value over 0.15 implies a poor quality data set. SIGNIFICANT CHANGE FROM PRIOR EXAM: Significant change if liver stiffness measurement is 10% or greater from prior exam. OTHER CONSIDERATIONS: The stage of liver fibrosis may be overestimated in the setting of acute hepatitis, liver inflammation, elevated liver function tests, hepatic vascular congestion, obstructive cholestasis, non-fasting state, and infiltrative diseases such as amyloidosis and lymphoma. In some patients with NAFLD, the liver stiffness thresholds for compensated advanced chronic liver disease may be lower. In causes other than viral hepatitis and NAFLD, liver stiffness thresholds are not well established.
== END 2023-04-06 07:42 | disposition home or self-care (01) ==
LOC: HO.US 07:41
PROVIDERS: PCP Family Medicine; Visit Provider Surgery
DX: E66.01 Morbid (severe) obesity due to excess calories (principal); I10 Essential (primary) hypertension; G47.30 Sleep apnea, unspecified
CPT/HCPCS: 76700; 76981; 99211

== ENCOUNTER 2023-04-12 08:01 | Outpatient (AMB) | payer OTHER, SELFPAY ==
--- NOTE | 2023-04-12 09:24 | A.OFFVIS_ITS ---
Intake VS Expanded 04/12/23 09:35 Height 5 ft 8.5 in Weight 289 lb 2 oz BMI 43.3 Body Fat Mass 137.1 Fat Free Mass 152.1 Intake Visit Reasons: TV Follow Up SWL Allergies naproxen [NAPROXEN] Allergy (Unknown, Verified 03/03/23 09:43) UNKNOWN HPI TV Follow Up SWL HPI Details Start time: 9.24am, End time: 9.44am ?I spent 15 minutes speaking with the patient on the phone plus an additional 5 minutes reviewing and updating records for a total of 20 minutes HPI Comments History of Present Illness Details Overall weight loss: 15.6lbs, or 5.12% TBWL Is doing 2-3 Celebrate Rebuild protein shakes (1 scoop in 8oz almond milk), 2 Celebrate protein bars and one meal (12 forks and salad not measured) Exercise: Outside walking x3/week for 30-40 minutes [facility] Medical History (Updated 03/19/23 @ 20:25 by Joseph Reis MD) Insomnia Sleep apnea Morbid obesity Back disorder HTN (hypertension) Assessment & Plan Assessment & Plan (1) Morbid obesity: Code(s): E66.01 - Morbid (severe) obesity due to excess calories Plan: 1. Continue same nutritional plan of 3 Celebrate Rebuild protein shakes (1 scoop in 8oz almond milk), 2 Celebrate protein bars and one meal (12 forks and 12 forks of salad) 2. Please make the effort to measure the salad portion as well in forkfuls. Salads like lettuce or amado need to be shredded first and then it is easy to measure them in forkfuls. 3. The best long-term solution in terms of exercise would be to purchase a stationary bike at home 4. In the meantime, please join a Gym. Start treadmill with an incline of 2.0 and speed of 3.2. Increase incline by 1 every 3 min to a max incline of 8.0, stay 3min at 8.0 and then return to 2.0 and repeat same steps until calorie goal is met. Goal is to burn 2000 calories per week on exercise, which means either 300 calories daily, or 400 calories 5 days per week, or 500 calories 4 days per week, or 650 calories 3 days per week. 5. Continue to send me weight measurements weekly on Fridays Telehealth Telehealth Location of provider rendering services: practice address Location of patient: address on file Patient Identification confirmed using: Name, : Yes Telehealth method: voice only Patient verbally consented to treatment: Yes Patient verbally consented to billing insurance company: Yes Patient informed of any privacy concerns related to visit: Yes Minutes spent on Phone/Video with Pt.: 20 Coding Level of Care Code Tele Est Pt Level 3 (71623) Diagnoses Morbid obesity E66.01 Time Spent (min) 20
[2023-04-12 09:35] VITALS: BMI 43.3
== END 2023-04-12 09:45 | disposition home or self-care (01) ==
LOC: HO.HBS 08:01
PROVIDERS: PCP Family Medicine; Visit Provider Surgery
DX: E66.01 Morbid (severe) obesity due to excess calories (principal)
CPT/HCPCS: 99213

== ENCOUNTER → 2023-04-12 08:01 | Outpatient (BNVA) | payer OTHER, SELFPAY | PROVIDERS: PCP Family Medicine; Visit Provider Surgery ==

== ENCOUNTER 2023-04-13 13:42 | Outpatient (AMB) | payer OTHER, SELFPAY ==
--- NOTE | 2023-04-13 13:32 | A.OFFVIS_ITS ---
Intake Intake Visit Reasons: VIDEO F/U SW Assistant Public Defender Required: No Allergies naproxen [NAPROXEN] Allergy (Unknown, Verified 03/03/23 09:43) UNKNOWN HPI Nutrition Presentation Reason for consult elevated BMI Diet Assmnt Details Pt reports doing well with his nutrition plan from surgeon. no complaints or concerns . mendoza fabian Is a single father to 15 year old son who pt states has some mental health issues. pt reports his brother had bariatric surgery 5 years ago, not doing very well experiences vomiting when eating wrong foods. 5 years ago back injury - 1.5 years of b eing rather immobile and gained weight. 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 of fast food prior to program Exercise: joined [employer] last night [facility] online classes: completed and scored well Dietary counseling reduction Diagnosis Nutrition problem #1 overweight/obesity As related to (etiology) #1 excess energy intake and physical inactivity As evidenced by (sign/symptom) #1 high BMI Monitoring/Goals Nutrition problem monitoring total energy intake, level of knowledge/skill, total PRO intake, total CHO intake and weight Outcome progress progressing Learning/Education Readiness to learn excellent Stages of change action Educational materials provided Yes Most Recent Diabetes Results: Cholesterol 179 mg/dL (<200) 03/19/23 HDL Cholesterol 40 mg/dL (>40) L 03/19/23 Triglycerides 77 mg/dL (<150) 03/19/23 Creatinine 1.01 mg/dL (0.5-1.4) 03/19/23 Blood Urea Nitrogen 20 mg/dL (9-16) H 03/19/23 Sodium 142 mmol/L (135-145) 03/19/23 Potassium 3.8 mmol/L (3.3-5.1) 03/19/23 Chloride 107 mmol/L (96-108) 03/19/23 Carbon Dioxide 26 mmol/L (22-29) 03/19/23 Calcium 9.1 mg/dL (8.4-10.2) 03/19/23 AST 31 U/L (5-37) 03/19/23 ALT 43 U/L (0-40) H 03/19/23 Total Protein 7.4 g/dL (6.5-8.0) 03/19/23 Albumin 4.2 g/dL (3.5-5.0) 03/19/23 [facility] Medical History (Updated 03/19/23 @ 20:25 by Joseph Reis MD) Insomnia Sleep apnea Morbid obesity Back disorder HTN (hypertension) Assessment & Plan Assessment & Plan (1) Morbid obesity: Code(s): E66.01 - Morbid (severe) obesity due to excess calories Plan pt is cleared Patient Instructions: Patient is cleared from a nutrition standpoint for bariatric surgery. Educational requirements have been completed. Reviewed vitamin supplementation and commitment to protein shake for several months post surgery. Encouraged communication with office as needed Telehealth Telehealth Location of provider rendering services: practice address Location of patient: address on file Patient Identification confirmed using: Name, : Yes Telehealth method: video Patient verbally consented to treatment: Yes Patient verbally consented to billing insurance company: Yes Patient informed of any privacy concerns related to visit: Yes Minutes spent on Phone/Video with Pt.: 10 Coding Level of Care Code Nutr Indiv Subseq (68131) Diagnoses Morbid obesity E66.01 Time Spent (min) 10
== END 2023-04-13 13:50 | disposition home or self-care (01) ==
LOC: HO.HBS 13:42
PROVIDERS: PCP Family Medicine; Visit Provider Dietitian, Registered
DX: E66.01 Morbid (severe) obesity due to excess calories (principal)

== ENCOUNTER → 2023-04-13 13:42 | Outpatient (BNVA) | payer OTHER, SELFPAY | PROVIDERS: PCP Family Medicine; Visit Provider Dietitian, Registered | DX: E66.01 Morbid (severe) obesity due to excess calories (principal); Z71.3 Dietary counseling and surveillance | CPT/HCPCS: 97803 ==

== ENCOUNTER → 2023-04-21 15:46 | Outpatient (REF) | payer OTHER, SELFPAY | LOC: HO.SL 15:46 | PROVIDERS: PCP Family Medicine; Visit Provider Surgery | DX: Z13.89 Encounter for screening for other disorder (principal) ==

== ENCOUNTER 2023-04-30 08:08 | Outpatient (AMB) | payer OTHER, SELFPAY ==
--- NOTE | 2023-04-30 08:42 | MHC.OFFVISWM ---
Intake VS Expanded 04/30/23 09:00 Height 5 ft 8.5 in Weight 283 lb BMI 42.4 Body Fat % 43.5 Body Fat Mass 123.1 Fat Free Mass 159.8 Body Water % 44.4 Body Water Mass 125.6 Intake Visit Reasons: TV Follow Up SWL Allergies naproxen [NAPROXEN] Allergy (Unknown, Verified 03/03/23 09:43) UNKNOWN HPI TV Follow Up SWL HPI Details Start time: 8.30am, End time: 9.02am ?I spent 27 minutes speaking with the patient on the phone plus an additional 5 minutes reviewing and updating records for a total of 32 minutes HPI Comments History of Present Illness Details Overall weight loss: 21.8lbs, or 6.8% TBWL Is doing 2 Celebrate Rebuild protein shakes (1 scoop each in almond milk), 3 Celebrate protein bars and one meal (12 forks of protein and 12 forks of salad or vegetables) Exercise: treadmill 3 days per week [facility] Medical History (Updated 04/21/23 @ 14:20 by Hanh Luis) Insomnia Sleep apnea Morbid obesity Back disorder HTN (hypertension) Assessment & Plan Assessment & Plan (1) Morbid obesity: Code(s): E66.01 - Morbid (severe) obesity due to excess calories Plan: 1. Plan for lap sleeve gastrectomy including upper GI endoscopy. All tests has been completed and reviewed and the patient is cleared for the surgery. ?If diaphragmatic or ventral hernias are present at time of surgery, these will be repaired laparoscopically as well. Risks and complications were discussed in detail including possible conversion to an open procedure, anastomotic leak, bleeding requiring transfusion, small bowel obstruction, , DVT and pulmonary embolism, cardiac, or pulmonary complications, as technician terminal and repeater complications such as anastomotic ulcer, insufficient weight loss and vitamin deficiencies. I emphasized the importance of close follow-up, adherence to instructions and good communication. So far he has proven to be an excellent communicator and very compliant with all our directions accomplishing a great weight loss. I believe that he is an excellent candidate and he is ready. 2. Do each shake and bar to follow each other and not together: A) BUSINESS DAYS: Start with ONE CELEBRATE REBUILD protein shake (ONE scoop in 8oz almond milk, buy at [facility]) at 6am-8am, 3 Celebrate protein bars (buy at [facility]) at 9am-11am, 12pm-2pm and 3pm-5pm, dinner at 6pm (12 forks of protein and 12 forks of salad/vegetables) and one Isopure INFUSIONS protein shake (HALF scoop in 8oz water, buy at [employer]) at 8pm-10pm. B) WEEKENDS: Start with ONE CELEBRATE REBUILD protein shake (ONE scoop in 8oz almond milk, buy at [facility]) at 8am-10am, 2 Celebrate protein bars (buy at [facility]) at 11am-1pm and 2pm-4pm, dinner at 5pm (12 forks of protein and 12 forks of salad/vegetables), one Isopure INFUSIONS protein shake (HALF scoop in 8oz water) at 7pm-9pm and one more Celebrate bar at 10pm-12am. 3. Change treadmill with an incline of 4.0 and speed of 3.0. Increase incline by 1 every 3 min to a max incline of 10.0, stay 3min at 10.0 and then return to 4.0 and repeat same steps until 500 calories are burned 3 days per week. 4. The best choice would be to purchase a stationary bike, elliptical or treadmill at home that can track calories. Let me know if you do so I can give you an exercise plan. 5. Send me weight measurements weekly on Fridays Telehealth Telehealth Location of provider rendering services: practice address Location of patient: address on file Patient Identification confirmed using: Name, : Yes Telehealth method: voice only Patient verbally consented to treatment: Yes Patient verbally consented to billing insurance company: Yes Patient informed of any privacy concerns related to visit: Yes Minutes spent on Phone/Video with Pt.: 32 Coding Level of Care Code Tele Est Pt Level 4 (55165) Diagnoses Morbid obesity E66.01 Time Spent (min) 32
[2023-04-30 09:00] VITALS: BMI 42.4
== END 2023-04-30 09:03 | disposition home or self-care (01) ==
LOC: HO.HBS 08:08
PROVIDERS: PCP Family Medicine; Visit Provider Surgery
DX: E66.01 Morbid (severe) obesity due to excess calories (principal)
CPT/HCPCS: 99214

== ENCOUNTER → 2023-04-30 08:08 | Outpatient (BNVA) | payer OTHER, SELFPAY | PROVIDERS: PCP Family Medicine; Visit Provider Surgery ==

== ENCOUNTER 2023-05-13 08:43 | Outpatient (REF) | payer OTHER, SELFPAY ==
--- NOTE | ~2023-05-13 | FL_ITS ---
EXAMINATION: XR FLUOROSCOPY UPPER GI WITH AIR CLINICAL INFORMATION: Preop evaluation prior to bariatric surgery COMPARISON: None TECHNIQUE: Fluoroscopic air contrast upper GI examination was performed utilizing standard techniques with thin and thick barium and effervescent granules. Numerous spot images were obtained. FINDINGS: Dual and single contrast images of the esophagus demonstrate normal caliber, contour, and mucosal pattern. No evidence of stricture, mass, or ulcerations identified. Esophageal peristalsis was normal. No evidence of hiatus hernia identified. Gastroesophageal reflux is seen in the distal esophagus. Dual contrast and single contrast images of the stomach demonstrated normal contour. There are a few small small round filling defects in the body the stomach that may represent tiny hyperplastic polyps. No mass or ulcerations are seen. Contrast freely passed into the gastric antrum and duodenal bulb without delay. Single and air-contrast images of the duodenal bulb demonstrate no abnormality. The duodenal sweep has a normal appearance, course, and mucosal fold appearance. No malrotation. The imaged proximal jejunum has a normal fold pattern and caliber. FLUOROSCOPY TIME: 4 minutes 38 seconds Number of Spot Images: 7 Number of Cine: 9 DOSE AREA PRODUCT: [id number] uGy-m2 (microgray-meter squared) FL/FL upper GI w air IMPRESSION: 1. A few small round filling defects in the body of the stomach, possibly small hyperplastic polyps. 2. Mild gastroesophageal reflux. 3. Otherwise normal exam. This procedure was performed by Kar Knight PA-C, and supervised by Dr. Vallecillo
== END 2023-05-13 08:44 | disposition home or self-care (01) ==
LOC: HO.XRAY 08:43
PROVIDERS: PCP Family Medicine; Visit Provider Surgery
DX: E66.01 Morbid (severe) obesity due to excess calories (principal); I10 Essential (primary) hypertension
CPT/HCPCS: 74246

== ENCOUNTER → 2023-05-13 08:45 | Outpatient (BNV) | payer OTHER, SELFPAY | PROVIDERS: PCP Family Medicine; Visit Provider Physician Assistant Surgical | DX: E66.01 Morbid (severe) obesity due to excess calories (principal); Z01.818 Encounter for other preprocedural examination | CPT/HCPCS: 74246 ==

== ENCOUNTER 2023-05-25 10:39 | Outpatient (AMB) | payer OTHER, SELFPAY ==
--- NOTE | 2023-05-25 14:55 | A.OFFVIS_ITS ---
Intake VS Expanded 05/25/23 14:56 Height 5 ft 8.5 in Weight 277 lb 7 oz BMI 41.6 Body Fat % 42.1 Body Fat Mass 116.9 Fat Free Mass 160.7 Body Water % 44.9 Body Water Mass 124.6 Intake Visit Reasons: TV Pre Op LSG 06/01/2023 Allergies naproxen [NAPROXEN] Allergy (Unknown, Verified 03/03/23 09:43) UNKNOWN HPI TV Pre Op LSG 06/01/2023 HPI Details Start time: 2.41pm, End time: 3.04pm. An additional 7 minutes were used at a different part of the day to complete this note and review patient's records. ?I spent 23 minutes speaking with the patient on the phone plus an additional 7 minutes reviewing and updating records for a total of 30 minutes HPI Comments History of Present Illness Details Overall weight loss: 27.1lbs, or 8.9% TBWL Is doing 2 Celebrate Rebuild protein shakes (1 scoop each in almond milk), 3 Celebrate protein bars and one meal (12 forks of protein and 12 forks of salad or vegetables) Exercise: treadmill 3 days per week [facility] Medical History (Updated 04/21/23 @ 14:20 by Hanh Luis) Insomnia Sleep apnea Morbid obesity Back disorder HTN (hypertension) Assessment & Plan Assessment & Plan (1) Morbid obesity: Code(s): E66.01 - Morbid (severe) obesity due to excess calories Plan: 1. Plan for lap sleeve gastrectomy including upper GI endoscopy. All tests has been completed and reviewed and the patient is cleared for the surgery. If diaphragmatic or ventral hernias are present at time of surgery, these will be repaired laparoscopically as well. Risks and complications were discussed in detail including possible conversion to an open procedure, anastomotic leak, bleeding requiring transfusion, small bowel obstruction, , DVT and pulmonary embolism, cardiac, or pulmonary complications, as jail complications such as anastomotic ulcer, insufficient weight loss and vitamin deficiencies. I emphasized the importance of close follow-up, adherence to instructions and good communication. So far he has proven to be an excellent communicator and very compliant with all our directions accomplishing a great weight loss. I believe that he is an excellent candidate and he is ready. 2. Preop prescriptions were provided and explained the purpose of each one. Need to be purchased preop. Start Pantoprazole now as you get it from the pharmacy, 1 pill per day. Sucralfate and Zofran are for after surgery as needed. 3. Bowel prep: please do 7 packets of Miralax mixing each one with a an 8oz glass of water, crystal light, gatorade zero, or propel on 05/30/23 and the same amount on 05/31/23. The Miralax you begin with one packet at a time in 8oz water or crystal light, gatorade zero, or propel as early in the day as you can and you do them back to back until you finish them. Continue the protein shakes during the bowel prep. 4. Needs to purchase 1oz medicine cups . 5. Needs to purchase Children's liquid Tylenol for postop pain control. 6. Avoid aspirin, motrin, Advil, Aleve, Ibuprofen, Naproxyn. Tylenol is OK. 7. He needs to purchase the Celebrate 4:1 protein shakes from the hospital's gift shop. 8. Will do basic preop blood work-up any day between Wednesday05/25/23 and Wednesday05/28/23 fasting for 12 hours and is scheduled to see the Anesthesiologist prior to the day of surgery. 9. Importance of adherence to postop folllow-up and recommendations was underscored and he understands that . 10. Stop food and bars as of tomorrow 05/25/23 and continue with 5 Celebrate REBUILD protein shakes (TWO scoops EACH in 8oz almond milk) at 7am-9am, 10am- 12pm, 1pm-3pm, 4pm-6pm and 7pm-9pm 11. No soups, broths or V8 12. The patient's medical history has been reviewed and they are considered low risk for post op DVT and therefore DVT prophylaxis is not considered necessary. Travel after surgery was reviewed. The patient has not disclosed any travel plans during the first 30 days after surgery and they have been advised that within the first 30 days after surgery any bus, plane, train or car travel over 2 hours in duration is contraindicated due to the possibility of developing blood clots from immobility. Any travel, needs to include periods of ambulation of 10 minutes in duration every 2 hours. Patient was instructed to discuss any plans for travel during this period with their bariatric surgeon. 13. Please take at the day of surgery the following medications: NONE 14. Absolutely no smoking or vaping, or marijuana until the surgery and for at least the first 4 weeks. Only nicotine patches are allowed. 15. Send me weight measurements on Wednesday05/28/23 and then on Wednesday06/01/23 the day of surgery before you go to the hospital. 16. Avoid any steroids by mouth for any reason. Let me know if someone prescrib es them to you 17. These instructions supersede anything else you read in the handbook, anything you watched in videos or classes or you were told by any other provider. If there is any conflict, you follow the above instructions and nothing else. Telehealth Telehealth Location of provider rendering services: practice address Location of patient: address on file Patient Identification confirmed using: Name, : Yes Telehealth method: voice only Patient verbally consented to treatment: Yes Patient verbally consented to billing insurance company: Yes Patient informed of any privacy concerns related to visit: Yes Minutes spent on Phone/Video with Pt.: 30 Coding Level of Care Code Tele Est Pt Level 4 (68093) Diagnoses Morbid obesity E66.01 Time Spent (min) 30
[2023-05-25 14:56] VITALS: BMI 41.6
== END 2023-05-25 15:06 | disposition home or self-care (01) ==
LOC: HO.HBS 10:39
PROVIDERS: PCP Family Medicine; Visit Provider Surgery
DX: E66.01 Morbid (severe) obesity due to excess calories (principal)
CPT/HCPCS: 99214

== ENCOUNTER → 2023-05-25 10:39 | Outpatient (BNVA) | payer OTHER, SELFPAY | PROVIDERS: PCP Family Medicine; Visit Provider Surgery ==

== ENCOUNTER → 2023-05-28 07:47 | Outpatient (BNVA) | payer OTHER, SELFPAY | PROVIDERS: PCP Family Medicine; Visit Provider Physician Assistant ==

== ENCOUNTER 2023-06-01 08:50 | Inpatient (IN) | payer OTHER, SELFPAY ==
[2023-05-28 07:44] LABS: MANUAL DIFF FLAG NO
[2023-05-28 08:12] LABS: Basophils Percent Auto 0.7 % (0-2); Eosinophils Absolute Auto 0.1 X10*3/uL (0.0-0.4); Eosinophils Percent Auto 1.7 % (0-4); Hematocrit 47.7 % (42.0-52.0); Hemoglobin 16.5 g/dl (14.0-18.0); Imm Gran Abs Auto 0.01 X10*3/uL (0.00-0.03); Imm Gran Pct Auto 0.2 % (0.0-0.4); Lymphocytes Absolute Auto 1.8 X10*3/uL (1.2-4.9); Lymphocytes Percent Auto 31.4 % (20-40); Mean Corpuscular HGB Conc 34.6 g/dl (31.0-36.0); Mean Corpuscular Hemoglobin 30.4 pg (27.0-33.0); Mean Platelet Volume 9.9 fL (9.4-12.4); Monocytes Absolute Auto 0.5 X10*3/uL (0.1-1.2); Monocytes Percent Auto 8.3 % (2-11); Neutrophils Absolute Auto 3.3 x10*3/uL (2.0-8.3); Neutrophils Percent Auto 57.7 % (45-73); Platelet Count 293 X10*3/uL (160-400); Red Blood Count 5.42 X10*6/uL (4.60-5.80); Red Cell Distribution Width 12.2 % (11.0-16.0); White Blood Count 5.8 X10*3/uL (4.8-10.8)
[2023-05-28 08:18] LABS: Prothrombin Time 12.2 SEC (11.1-13.3)
[2023-05-28 08:19] LABS: Estimated Average Glucose 103 mg/dL; Hemoglobin A1c % 5.2 % (<6.0)
[2023-05-28 08:21] LABS: Partial Thromboplastin Time 35.4 SEC (26.0-36.8)
[2023-05-28 08:41] LABS: Alanine Aminotransferase 34 U/L (0-40); Albumin Level 4.5 g/dL (3.5-5.0); Alkaline Phosphatase 58 U/L (39-117); Anion Gap 12 (12-20); Aspartate Amino Transferase 23 U/L (5-37); Bilirubin Total 0.8 mg/dL (0.0-1.0); Blood Urea Nitrogen 27 mg/dL (9-16); C Reactive Protein < 0.10 mg/dL (< or = 0.50); Calcium 9.5 mg/dL (8.4-10.2); Carbon Dioxide 26 mmol/L (22-29); Chloride 109 mmol/L (96-108); Cholesterol 172 mg/dL (<200); Estimated Glomerular Filt Rate > 60; Glucose Random 98 mg/dL (60-115); HDL Cholesterol 32 mg/dL (>40); LDL Cholesterol Calculated 119 mg/dL (<100); Potassium 3.9 mmol/L (3.3-5.1); Sodium 143 mmol/L (135-145); Total Protein 7.8 g/dL (6.5-8.0); Triglycerides 108 mg/dL (<150)
[2023-05-28 08:57] LABS: Insulin 10 uU/mL (2-29); TSH reflex Free T4 0.89 uIU/mL (0.32-4.0)
[2023-05-28 10:21] VITALS: BMI 40.6
--- NOTE | 2023-05-31 10:12 | P.CONAN_ITS ---
Documented by User: Ilda Carroll NP 05/31/23 10:14 HPI - Anesthesia Eval Consult details Narrative: 47yo M for Gastrectomy Sleeve-EGD, possible diaphragmatic hernia, possible ventral hernia, possible open PMFSH Active Problems Active Problems: All Active Problems (Updated 05/28/23 @ 10:00 by Tricia Jackson RN) Adjustment disorder, unspecified (Acute) Vitamin B12 deficiency (Acute) Vitamin D deficiency (Acute) Insomnia (Acute) Sleep apnea (Acute) Back disorder (Acute) HTN (hypertension) (Acute) Morbid obesity (Acute) Past Medical History Medical History DJD (degenerative joint disease) GERD (gastroesophageal reflux disease) Back pain Degenerative disc disease, lumbar History of fractured vertebra Elevated cholesterol Insomnia Sleep apnea Morbid obesity Back disorder HTN (hypertension) Surgical History Surgical History Hx of hand surgery Social History Social History Are you a primary behavioral health care coordinator to a significant other at home: Yes Do you presently have visiting nurse or other home services: No Use of substances other than those prescribed or required for medical reasons: Yes Substance Use Type Other:: vape Substance Use Frequency: Daily Have you been hit, kicked, punched, or otherwise hurt by someone within the past year? If so, by whom?: No Advance Directives: No Advance Directives Information Provided: No Advance Directives on File: No Recently lost weight without trying: No Eating poorly because of decreased appetite: No Nutrition Risks: No Nutritional Risk Poor oral hygiene: No Meds Allergies Allergy/AdvReac Type Severity Reaction Status Date / Time naproxen [NAPROXEN] Allergy Unknown UNKNOWN Verified 03/03/23 09:43 Home Medications Medication Instructions Recorded Confirmed Last Taken Type amlodipine 10 mg tablet 10 mg PO DAILY 03/03/23 05/28/23 06/01/23 History losartan 50 mg tablet 50 mg PO DAILY 03/03/23 05/28/23 05/31/23 History tramadol 50 mg tablet 50 mg PO Q6H PRN Pain 03/03/23 05/28/23 05/31/23 History trazodone 50 mg tablet 75 mg PO BEDTIME PRN Insomnia 03/03/23 05/28/23 05/31/23 History Exam Height,Weight and Vital Signs: Height 5 ft 9 in Weight 124.738 kg Pertinent Lab Results Pertinent Lab Results: Laboratory Tests 05/28/23 05/28/23 07:31 07:38 WBC 5.8 RBC 5.42 Hgb 16.5 Hct 47.7 MCV 88.0 MCH 30.4 MCHC 34.6 RDW 12.2 Plt Count 293 D MPV 9.9 Immature Gran % (Auto) 0.2 Neut % (Auto) 57.7 Lymph % (Auto) 31.4 Crosby % (Auto) 8.3 Eos % (Auto) 1.7 Baso % (Auto) 0.7 Lymph # (Auto) 1.8 Crosby # (Auto) 0.5 Eos # (Auto) 0.1 Baso # (Auto) 0.0 Abs Immat Gran (auto) 0.01 Absolute Neuts (auto) 3.3 Absolute Nucleated RBC 0.000 Nucleated RBC % (auto) 0.0 PT 12.2 INR 1.0 APTT 35.4 Sodium 143 Potassium 3.9 Chloride 109 H Carbon Dioxide 26 Anion Gap 12 BUN 27 H Creatinine 1.12 Estim Creat Clear Calc TNP Estimated GFR > 60 Random Glucose 98 Estimat Average Glucose 103 Hemoglobin A1c % 5.2 Insulin Level 10 Calcium 9.5 Total Bilirubin 0.8 AST 23 ALT 34 Alkaline Phosphatase 58 C-Reactive Protein < 0.10 Total Protein 7.8 Albumin 4.5 Triglycerides 108 Cholesterol 172 LDL Cholesterol, Calc 119 H HDL Cholesterol 32 L TSH 0.89 Blood Type O Negative Antibody Screen NEGATIVE Narrative Narrative: EKG 03/2023 Vent. Rate : 058 BPM Atrial Rate : 058 BPM P-R Int : 150 ms QRS Dur : 118 ms QT Int : 452 ms P-R-T Axes : 013 -03 010 degrees QTc Int : 443 ms Sinus bradycardia Non-specific intra-ventricular conduction delay Borderline ECG No previous ECGs available Assessment and Plan Assessment Anesthesia Assessment: Chart Reviewed Documented by User: Jerry Rosado MD 06/01/23 12:10 [facility] Past Medical History Medical History DJD (degenerative joint disease) GERD (gastroesophageal reflux disease) Back pain Degenerative disc disease, lumbar History of fractured vertebra Elevated cholesterol Insomnia Sleep apnea Morbid obesity Back disorder HTN (hypertension) Family History Family history of problems with anesthesia: No Surgical History Surgical History Hx of hand surgery History of Problems with Anesthesia: No Social History Social History Are you a primary behavioral health care coordinator to a significant other at home: Yes Do you presently have visiting nurse or other home services: No Use of substances other than those prescribed or required for medical reasons: Yes Substance Use Type Other:: vape Substance Use Frequency: Daily Have you been hit, kicked, punched, or otherwise hurt by someone within the past year? If so, by whom?: No Advance Directives: No Advance Directives Information Provided: No Advance Directives on File: No Recently lost weight without trying: No Eating poorly because of decreased appetite: No Nutrition Risks: No Nutritional Risk Poor oral hygiene: No Meds Allergies Allergy/AdvReac Type Severity Reaction Status Date / Time naproxen [NAPROXEN] Allergy Unknown UNKNOWN Verified 03/03/23 09:43 Home Medications Medication Instructions Recorded Confirmed Last Taken Type amlodipine 10 mg tablet 10 mg PO DAILY 03/03/23 05/28/23 06/01/23 History losartan 50 mg tablet 50 mg PO DAILY 03/03/23 05/28/23 05/31/23 History tramadol 50 mg tablet 50 mg PO Q6H PRN Pain 03/03/23 05/28/23 05/31/23 History trazodone 50 mg tablet 75 mg PO BEDTIME PRN Insomnia 03/03/23 05/28/23 05/31/23 History Exam Airway Mallampati Class: III TM Dist: >3cm Neck ROM: Full Loose/Missing/Broken Teeth: No Heart: rrr+s1s2 Lungs: cta b/l Assessment and Plan Assessment Anesthesia Assessment: Anesthesia Plan Discussed Final Anesthetic Review Family History of Problems with Anesthesia: No History of Problems with Anesthesia: No NPO: Yes ASA Class: III Final Preanesthetic Review: No Changes in Pt Med Stat, Meds/Allgs Chart Review ed, Consent Obtained/Reviewed and Anes Risks/Benef Reviewed Patient Risk: Intermediate Procedure Risk: Intermediate Assessment/Block/Sedation in SS: Assess/Block/Sedation-SS Anesthetic Plan Anesthetic Plan: GA and Agree w/ Assess. and Plan Disposition: Standard PACU
[2023-06-01] VITALS (20 sets, daily range): BP systolic 103–168; BP diastolic 42–91; PULSE 53–81; RESP 12–20; TEMP 36.2–37.2; O2SAT 93–99; BMI 39.9; BMI 42.5
--- NOTE | 2023-06-01 09:33 | PHA.MEDREC ---
Pharmacy Consult ? Medication Reconciliation Pharmacy has completed the medication reconciliation.
[2023-06-01] MEDS: Aprepitant 32 MG/4.4 ML VIAL IVPUSH (09:53)
[2023-06-01] MEDS: Lactated Ringers 1,000 ML 999 ML IV (09:53)
--- NOTE | 2023-06-01 10:55 | MHC.SHP ---
Pre-Procedural Eval Section A - 24 Hr Update-Section A only Date of Service: 06/01/23 The patient is an INPATIENT: Yes The patient has been examined within 24 hours of the surgical procedure. The History & Physical has been completed within 30 days and I have reviewed it.: Yes Section B - Complete if H&P > 30 days Chief Complaint: morbid obesity Relevant Family History (Specify if Yes): No Relevant Social History: None Present Medications: None Medical History: No relevant PMH History of Previous Operations: No relevant previous surgery Allergies: Allergies Allergy/AdvReac Type Severity Reaction Status Date / Time naproxen [NAPROXEN] Allergy Unknown UNKNOWN Verified 03/03/23 09:43 Review of Systems Sugical H&P ROS: Negative: Constitution, Cardiovascular, Respiratory, Neurological, Psychiatric, Hem-Onc, Allergic/Immunologic, Gastrointestinal, Genitourinary, Musculoskeletal, Integumentary, Endocrine and Eyes/Ears/Nose/Throat Exam Surgical H&P Exam: Normal: HEENT, Normal: Heart, Normal: Lungs, Normal: Extremities, Normal: Abdomen, Normal: Skin and Normal: Neurological Plan Diagnosis/Plan: Unchanged I have reviewed the history and physical and performed a pertinent physical examination on my patient. No changes have occurred unless specified. Time Spent With Patient Time: Total time managing care of this patient today ____ minutes.
--- NOTE | 2023-06-01 11:02 | P.BOP_ITS ---
Brief Operative Note Date of Service: 06/01/23 Pre-op diagnosis: Morbid obesity with comorbidities (see below) Post-op diagnosis: same (& congenital abdominal adhesions) Procedure: INITIAL PATIENT BMI ON PRESENTATION AT OUR OFFICE: 45.7 kg/m2 LAST BMI BEFORE SURGERY: 40 kg/,2 COMORBIDITIES: hypertension, GERD, insomnia, DJD ?The patient presented to the Weight Management Program with significant obesity that was negatively impacting the patient's comorbidities as listed above.? The program is a phased program with a special focus on preoperative medical weight management to promote substantial weight loss and prepare the patients for the second phase of the program: bariatric surgery. The patient participated in an intensive weekly lifestyle ?intervention and exercise program during which the patient ?has lost between the initial office visit and the last preoperative visit 31.3lbs, or 10% of initial actual body weight. It was deemed appropriate for the patient to now have bariatric surgery. In light of the current Covid-19 pandemic and the well documented strong association of obesity and increased risk of worse outcomes if infected with Covid-19 (REFERENCES: https://pubmed.ncbi.nlm.nih.gov/30376030/ ,? https://pubmed.ncbi.nlm.nih.gov/26347757/ ), any delay in undergoing bariatric surgery may lead to the patient's worsening health condition and increased?risk of more severe Covid-19 disease if infected. In addition a recent?study from [facility] published in [facility] on 03/10/2021 ([email or web address]) found that, among patients with obesity, substantial weight loss achieved with surgery was associated with improved outcomes of COVID-19 infection. The findings suggest that obesity can be a modifiable risk factor for the severity of COVID-19 infection. In addition, the patient met the BMI-criteria for bariatric surgery based on the BMI on initial presentation. The patient should not be penalized for achieving such weight loss because ?it is not sustainable long-term without surgical intervention and it was achieved in preparation for bariatric surgery ?under my direction and based on my published research ([email or web address]).[email or web address] and? https://www.soard.org/article/[email or web address](04)79915-X/pdf ) ?that a 10% preoperative weight loss improves long-term weight loss after surgery and reduces perioperative complications.? Insurance carriers such as [facility] have endorsed my recommendations ?and have included in their policies criteria to include a 10% preoperative weight loss requirement. PROCEDURE: Esophago-gastroscopy, laparoscopic lysis of adhesions, laparoscopic sleeve gastrectomy and laparoscopic gastropexy INDICATIONS: This is a 47 year-old female who was electively scheduled for laparoscopic, possibly open sleeve gastrectomy. The risks and complications of the procedure were discussed with the patient in advance, particularly the possibility of ; pulmonary embolism; staple line leak; bleeding; GERD; cardiac, pulmonary, or renal complications; as well as long-term problems such as insufficient weight loss, vitamin deficiency, strictures, or ulcers. The patient understood all the risks, and was in agreement to proceed with surgery. DESCRIPTION OF PROCEDURE: After informed consent was obtained from the patient, the patient was given preoperative antibiotics, and was transferred to the operating room. After successful induction of general anesthesia, pneumatic compression devices were placed on both lower extremities. An upper endoscopy was performed next. The oropharynx and esophagus appeared to be within normal limits. There was no diaphragmatic hernia present consistent with the findings of the preoperative upper GI. The stomach was entered. Then after all fluid and air were suctioned and the stomach was fully decompressed, the scope was withdrawn and secured in the mid esophagus. The patient was then prepped and draped in the usual sterile manner, and abdominal access was established at the right upper quadrant with the Charu technique. A 12 mm blunt port was inserted, and the abdomen was insufflated with CO2 to a pressure of 15 mmHg. Under direct visualization, additional ports were placed, specifically two 5 mm Versi-step ports to the left upper quadrant, and a 5 mm Versi-Step port to the right upper quadrant. 1% lidocaine plain was used to infiltrate all port sites as well as all fascia defects. Following that, the patient was placed in a steep reverse Trendelenburg position. An additional 5 mm port was placed to the right flank for the Mediflex retractor that was used to retract the left lobe of the liver. The gastro-esophageal fat pad was opened with the ultrasonic device (Annmarie Olympus) and the anterior esophagus and hiatus were exposed. The angle of His was opened with the ultrasonic device the fundus of the stomach from any diaphragmatic and splenic attachments. I then opened the gastrocolic ligament between the transverse colon and the greater curvature of the stomach with the ultrasonic device to enter the lesser sac and facilitate the ligation of the short gastric vessels. I started at a mid-point along the greater curvature and using the Thunderbeat, all short gastric vessels were divided all the way to the angle of His until the left anthony was completely dissected at its entirety. I then divided the gastro-colic ligament distally to a distance of about 3-4 cm proximal to the pylorus. There were extensive congenital adhesions between the pancreas and posterior gastric wall. Those were lysed completely with the ultrasonic device. Adhesiolysis took approximately 45 min to complete. The stomach was then divided transversely with two Endo WILLY-45 purple and four WILLY-60 articulating purple loads using the GT Urological stapler and loads. Every effort was made that the gastric sleeve had a tubular shape and an even caliber throughout. Once the sleeve resection was completed, the staple line of the gastric sleeve was reinforced with Hemoclips. The resected stomach was retrieved without difficulty from the Charu port. A gastropexy was then performed in order to prevent postoperative GERD and partial gastric volvulus. Several interrupted 2.0 Surgidac sutures were placed between the sleeve's staple line and the previously divided greater omentum and gastro-colic ligament using the Endo-Stitch device. ?An upper endoscopy was performed. There was no narrowing at the GE junction. The scope was easily advanced all the way to the pylorus which was clearly visualized. There was no narrowing anywhere and the sleeve's caliber was even throughout. The sleeve's staple line was inspected and there was no evidence of ischemia, bleeding or dehiscence. At that point the gastroscope was withdrawn from the patient?s mouth while we were decompressing the bowel and the stomach from any remaining air. I looked into the lesser sac to see how the sleeve was situating and it was situating well. There was no bleeding from the staple line, spleen, or short gastric vessels. The Mediflex retractor was removed, and the undersurface of the liver was inspected and there was no bleeding. The patient was placed in supine position. I closed the fascial defect of the 12 mm port site with a figure of eight #1 Polysorb suture. Then 30cc Ropicacaine plain with 10 mg of Dexamethasone were used to infiltrate the fascial closure as well as all skin incisions. At this point, the abdomen was deflated, all ports were removed under direct vision, and no bleeding was noted from any of the port sites. The skin incisions were irrigated with saline and were closed with 4-0 absorbable monofilament sutures. Steri-Strips and OpSites were used to cover all incisions. The patient was extubated and was transferred in stable condition to the recovery room for further care. I was present and performed all davis parts of the procedure. Ms. Galindo was the customer care assistant. There were no residents to assist with this case. Gregory Reis MD, PhD, FACS Surgeon: Joseph Reis MD Anesthesia: GETA, local and other (TAP block) Was an Forestry Technician used for this Procedure?: No Forestry Technician: Rona Galindo Estimated blood loss (mL): 10 IV fluids (mL): 3,000 Urine output (mL): 0 (No Perez to record output) Pathology: other (Stomach) Condition: stable Disposition: PACU
--- NOTE | 2023-06-01 11:04 | P.PNGS_ITS ---
Subjective Subjective Date of Service: 06/02/23 Interval history: Feels well. Mild incisional pain. He is tolerating phase 1 bariatric diet Physical Exam 2 Vital Signs: Vital Signs: Last Vital Signs Temp 97.5 F 06/01/23 09:22 Pulse 56 06/01/23 09:22 Resp 16 06/01/23 09:22 BP 103/52 L 06/01/23 09:22 Pulse Ox 95 06/01/23 09:22 O2 Del Method Room Air 06/01/23 09:22 BMI result Body Mass Index 39.9 GI: Inspection: Yes normal to inspection, Yes incision (clean, dry and intact) and Yes obesity Palpation (GI): Soft to palpation Extrem: Right lower extremity: normal to inspection (no calf tenderness) L eft lower extremity: normal to inspection (no calf tenderness) Objective Data Active Medications Lactated Ringer's (Lr) 1,000 mls @ 100 mls/hr IVCONT .Q10H NERY Labs 06/02/23 05:41 06/02/23 05:41 Procedures Date of Service Date of Service: 06/02/23 Progress Note: A&P Assessment and plan (1) Morbid obesity: Status: Acute Assessment and Plan: s/p laparoscopic sleeve gastrectomy, lysis of adhesions and gastropexy Doing well Will check am labs and if OK the patient will be discharged home (2) HTN (hypertension): Status: Acute (3) Insomnia: Status: Acute (4) DJD (degenerative joint disease): Status: Acute (5) S/P laparoscopic sleeve gastrectomy: Status: Acute (6) Congenital intra-abdominal adhesions: Status: Acute Time Spent With Patient Time: Total time managing care of this patient today ____ minutes. Quality Stroke Does the patient have a stroke diagnosis?: No VTE Prior VTE?: No VTE Risk Level:: Surgical - moderate VTE Device Contraindication: N/A - Device Ordered VTE Drug Contraindication: Treatment Not Indicated
--- NOTE | 2023-06-01 11:07 | PM.DS ---
DS: Providers Provider Date of Service: 06/02/23 Date of admission: 06/01/23 08:50 Primary care physician: Emmanuel Lombardi MD DS: Diagnosis Discharge Diagnosis (1) Morbid obesity: Status: Acute (2) HTN (hypertension): Status: Acute (3) Insomnia: Status: Acute (4) DJD (degenerative joint disease): Status: Acute DS: Summary Hospital Course Hospital Course: ADMITTING DIAGNOSIS: morbid obesity, ANTONETTE, HTN, insomnia DISCHARGE DIAGNOSIS: same, s/p laparoscopic sleeve gastrectomy PAST SURGICAL HISTORY: hand surgery PROCEDURE: upper endoscopy, laparoscopic sleeve gastrectomy DISCHARGE SUMMARY: History of Present Illness: The patient is a 47 year-old woman with a BMI of 45.6 kg/m2 and associated co-morbidities as described above. The patient had extensive work-up, lost 27.1 lbs preoperatively and was electively scheduled for laparoscopic, possible open sleeve gastrectomy and gastropexy. Risks and complications of the surgery were discussed with the patient in advance, particularly the possibility of , pulmonary embolism, anastomotic leak, bleeding, bowel injury, GERD, cardiac, renal or pulmonary complications. The patient understood all the risks and was in agreement with the surgical plan. Hospital Course: The patient underwent an uneventful laparoscopic sleeve gastrectomy with gastropexy on the day of admission. Postoperatively, the patient was transferred to the surgical floor. The patient received IV Acetaminophen and IV dilaudid for pain control. Patient was started on bariatric phase 1 diet POD #0. On postoperative day one, the patient was feeling well without nausea, vomiting, fevers, or tachycardia. The patient had some mild incisional pain and the abdomen was soft. On the morning of postoperative day one, the patient was continued on 1 ounce of water or ice every half hour. During the day, the patient did fairly well, having some incisional pain, but able to ambulate adequately and to tolerate liquids well. Since the patient is doing well, we decided that the patient was ready to be discharged. The patient was given instructions to follow-up with me next week and to call my office for any fever over 101, persistent abdominal pain, nausea, vomiting, GERD, symptoms of DVT such as calf tenderness, or leg swelling, or pulmonary embolism such as chest pain or shortness of breath. The patient was also instructed to drink 40-60 ounces of liquids per day using the 1-ounce cups. The patient had been given prescriptions for Tylenol for pain, Zofran prn for nausea, and pantoprazole and carafate previously. The patient was encouraged to ambulate and use the incentive spirometer. The patient was allowed to shower, but no baths, and encouraged to stay active at home. All of these instructions were given to the patient personally. All questions were answered and the patient understood all instructions, the instructions were also given to the patient in print. Time Attestation Discharge Coordination Time (in mins): 30 minutes Quality: Safe Use of Opioids Does Pt have an Active Cancer Diagnosis on the Problem List?: No Quality: Stroke Does the patient have a stroke diagnosis?: No Physical Exam Vital Signs: Vital Signs: Last Vital Signs Temp 97.5 F 06/01/23 09:22 Pulse 56 06/01/23 09:22 Resp 16 06/01/23 09:22 BP 103/52 L 06/01/23 09:22 Pulse Ox 95 06/01/23 09:22 O2 Del Method Room Air 06/01/23 09:22 BMI result Body Mass Index 39.9 Discharge Plan Discharge Anticipated Discharge Date/Time: 06/02/23 10:00 Patient Disposition: Home, Self-Care Discharge Diagnosis: s/p sleeve gastrectomy Referrals: Emmanuel Lombardi MD [Primary Care Provider] - 1 Week Discharge Medications: Continued pantoprazole 40 mg tablet,delayed release (DR/EC) 40 mg PO DAILY Qty: 90 2RF sucralfate 100 mg/mL suspension 10 ml PO BID Qty: 600 2RF ondansetron 4 mg tablet,disintegrating 4 mg PO Q12H Qty: 20 0RF Rx Instructions: Only take one every 12 hours as needed if you have nausea trazodone 50 mg tablet 75 mg PO BEDTIME PRN (Reason: Insomnia) tramadol 50 mg tablet 50 mg PO Q6H PRN (Reason: Pain) Held losartan 50 mg tablet 50 mg PO DAILY Hold Instructions: Resume on 06/03/23. Check your blood pressure every morning as soon as you wake up and send it to Dr. Reis. Do no take the blood pressure medication if the blood pressure is below 120/70. Wait every day to hear back from Dr. Reis before you take the medication. amlodipine 10 mg tablet 10 mg PO DAILY Hold Instructions: Resume on 06/03/23. Check your blood pressure every morning as soon as you wake up and send it to Dr. Reis. Do no take the blood pressure medication if the blood pressure is below 120/70. Wait every day to hear back from Dr. Reis before you take the medication. Discontinued mecobalamin (vitamin B12) 1,000 mcg tablet,disintegrating 1,000 mcg sublingual DAILY Qty: 60 0RF Rx Instructions: place tablet under tongue and allow to dissolve for at least30 secs before swallowing cholecalciferol (vitamin D3) 125 mcg (5,000 unit) capsule 125 mcg PO DAILY Qty: 90 0RF Discharge Orders: Discharge Order (Routine); Ordered 06/02/23 Ordered By: Joseph Reis Activity on Discharge: No heavy lifting Stand Alone Forms: Patient Portal Discharge page Care Plan Goals: weight loss Health Concerns: morbid obesity Plan of Treatment: No tub baths, sex or returning to work until discussed at first post op appointment. No exercise, alcohol, tobacco or illegal drug use. Continue to use incentive spirometer hourly while awake. Walk in home for 5- 10 minutes every 2 hours during the first week. Continue phase 1 diet today and start phase 2 diet tomorrow morning. Follow all instructions in the bariatric handbook and call with any questions. 1. Please call your doctor or come back to the emergency room should any new symptoms arise. 2. You will receive a courtesy call from [facility] 24-48 hours after discharge. 3. Activity: abstain from alcohol, practice limited stair climbing, no bending, no driving, no exercise, no illicit substances, no lifting, no sex, no tub bath, no work. 4. Diet: continue as discussed with bariatric team.. 5. Dressing Change/Wound Care: Do not change or remove surgical dressings unless they are wet or soiled. 6. Call your doctor if: - Your temperature exceeds 101.5 F - You experience excessive pain or swelling - You have an unexpected reaction to medication - You have excessive bleeding - You experience continued vomiting/nausea - Your incision begins to separate - Your incision shows signs of infection such as increased redness, swelling, excessive pain, heat, or drainage (light blood or clear fluid is normal) 7. General instructions: No lifting greater than 5 lbs for 1 week and not more than 20lbs the next 3?weeks. No driving until seen at the office in 5-7 days after surgery. If you do not move your bowels in the next 2 days, please tell?Dr. Reis. Please walk around your home every hour or two to prevent blood clots from forming in your legs. You do not need to wake from sleeping to walk. Please sleep in a bed or couch to prevent kinking at the hips and knees. Please take your incentive spirometer (your lung certified social workers in health care) home with you and use it for the next few days to prevent pneumonia. You may shower, no hot tubs, baths or swimming pools.?Please follow the post op diet instructions you are?given by Dr Makenna sapp? and text me daily at 5-6pm for an update.?If you have any issues or concerns or questions please communicate this to him via text.? The Celebrate shakes have all of the bariatric vitamins you need if you consume these shakes. If you are drinking other protein shakes, you will need to purchase the Celebrate multivitamins and calcium that are available in the hospital gift shop on the first floor of the [facility].??Do not take anything without first discussing with Dr Reis. Please make sure you are consuming at least 40 ounces of fluids per day starting the?day AFTER your discharge from the hospital. Always drink 1-2 ml per minute using the 5ml?syringe. If you drink faster you may experience?bloating,?gas pain, burping, nausea or heartburn. In that case please slow down your pace and use the syringe to?understand better the?proper?pace and volume of drinking. Do not hesitate to contact the office with any questions at . The patient's medical history has been reviewed and they are considered low risk for post op DVT and therefore DVT prophylaxis is not considered necessary. Travel after surgery was reviewed. The patient has not disclosed any travel plans during the first 30 days after surgery and they have been advised that within the first 30 days after surgery any bus, plane, train or car travel over 2 hours in duration is contraindicated due to the possibility of developing blood clots from immobility. Any travel, needs to include periods of ambulation of 10 minutes in duration every 2 hours. The patient was instructed to discuss any plans for travel during this period with their bariatric surgeon. Assessment: stable, post op sleeve gastrectomy Discharge Date/Time: 06/02/23 08:43
[2023-06-01 13:58] LABS: Hematocrit 43.9 % (42.0-52.0); Hemoglobin 15.5 g/dl (14.0-18.0)
[2023-06-01] MEDS: HYDROmorphone HCl 0.5 MG/0.5 ML SYRINGE IVPUSH ×2 (13:58→14:06)
[2023-06-01] MEDS: Lactated Ringers 1,000 ML 100 ML IVCONT ×2 (14:11→23:08)
[2023-06-01 14:12] LABS: Anion Gap 15 (12-20); Blood Urea Nitrogen 20 mg/dL (9-16); Calcium 8.5 mg/dL (8.4-10.2); Carbon Dioxide 20 mmol/L (22-29); Chloride 108 mmol/L (96-108); Creatinine Clr Calc Pharmacy 120.5; Estimated Glomerular Filt Rate > 60; Glucose Random 155 mg/dL (60-115); Potassium 3.6 mmol/L (3.3-5.1); Sodium 139 mmol/L (135-145)
[2023-06-01] MEDS: Losartan Potassium 50 MG TABLET PO (16:45)
[2023-06-01] MEDS: ceFAZolin Sodium/Dextrose,Iso 2 GM/50 ML PIGGYBACK IV (16:45)
[2023-06-01] MEDS: amLODIPine Besylate 10 MG TABLET PO (16:46)
[2023-06-01] MEDS: HYDROmorphone HCl 0.5 MG/0.5 ML SYRINGE 0.25 MG IVPUSH (16:46)
[2023-06-01] MEDS: Famotidine/PF 20 MG/2 ML VIAL IVPUSH ×2 (16:46→21:15)
--- NOTE | 2023-06-01 18:08 | PC.NURSE ---
Pt ambulated in hallway tolerating phase I diet
[2023-06-01] MEDS: Acetaminophen 1,000 MG/100 ML PIGGYBACK 16.7 MG IV ×2 (18:14→23:08)
[2023-06-01] MEDS: 0.9 % Sodium Chloride Flush 3 ML SYRINGE IVFLUSH (21:15)
[2023-06-02 04:00] VITALS: BP 128/67; PULSE 56; RESP 16; TEMP 37.1; O2SAT 93
[2023-06-02] MEDS: Acetaminophen 1,000 MG/100 ML PIGGYBACK 16.7 MG IV (04:56)
[2023-06-02 06:42] LABS: MANUAL DIFF FLAG NO
[2023-06-02 06:52] LABS: Basophils Percent Auto 0.1 % (0-2); Hematocrit 42.4 % (42.0-52.0); Hemoglobin 14.9 g/dl (14.0-18.0); Imm Gran Abs Auto 0.06 X10*3/uL (0.00-0.03); Imm Gran Pct Auto 0.5 % (0.0-0.4); Lymphocytes Absolute Auto 1.1 X10*3/uL (1.2-4.9); Lymphocytes Percent Auto 9.6 % (20-40); Mean Corpuscular HGB Conc 35.1 g/dl (31.0-36.0); Mean Corpuscular Hemoglobin 30.7 pg (27.0-33.0); Mean Corpuscular Volume 87.4 fL (80.0-98.0); Mean Platelet Volume 10.9 fL (9.4-12.4); Monocytes Absolute Auto 0.7 X10*3/uL (0.1-1.2); Monocytes Percent Auto 5.8 % (2-11); Neutrophils Absolute Auto 9.9 x10*3/uL (2.0-8.3); Platelet Count 239 X10*3/uL (160-400); Red Blood Count 4.85 X10*6/uL (4.60-5.80); Red Cell Distribution Width 12.3 % (11.0-16.0); White Blood Count 11.8 X10*3/uL (4.8-10.8)
[2023-06-02] MEDS: Famotidine/PF 20 MG/2 ML VIAL IVPUSH (06:52)
[2023-06-02] MEDS: amLODIPine Besylate 10 MG TABLET PO (06:52)
[2023-06-02] MEDS: Losartan Potassium 50 MG TABLET PO (06:52)
[2023-06-02 07:06] LABS: Anion Gap 14 (12-20); Blood Urea Nitrogen 15 mg/dL (9-16); Calcium 8.7 mg/dL (8.4-10.2); Carbon Dioxide 22 mmol/L (22-29); Chloride 107 mmol/L (96-108); Creatinine Clr Calc Pharmacy 140.5; Estimated Glomerular Filt Rate > 60; Glucose Random 110 mg/dL (60-115); Potassium 3.6 mmol/L (3.3-5.1); Sodium 139 mmol/L (135-145)
[2023-06-02 07:09] VITALS: BP 140/72; PULSE 55; RESP 16; TEMP 37; O2SAT 93
--- NOTE | 2023-06-02 08:45 | MHC.CM.PN ---
Patient dc'd home self care prior to CM evaluation.
--- NOTE | 2023-06-02 12:38 | HO.POSTANES ---
Post Anesthesia Evaluation Post Anesthesia Evaluation Date of Service: 06/02/23 Vital Signs: Vital Signs Temp Pulse Resp BP Pulse Ox O2 Del Method 06/02/23 07:09 98.6 F 55 16 140/72 H 93 Room Air 06/02/23 04:00 98.8 F 56 16 128/67 93 Room Air Anesthesia: General Endotracheal-GETA Mental Status: Awake Pain Control: Satisfactory Nausea/Vomiting: None Hydration: Adequate Anesthesia-Related Issues: No Anes. Related Issues
== END 2023-06-02 08:43 | disposition home or self-care (01) | DRG 403 ==
LOC: HO.SSSA 11:06 → HO.S3 15:18
PROVIDERS: Physician Assistant; Admitting Provider Surgery; PCP Family Medicine; Visit Provider Surgery
PROC: 0DB64Z3 Excision of Stomach, Percutaneous Endoscopic Approach, Vertical (ICD-10-PCS; CPT 43845; principal; 2023-06-01 11:30)
DX: E66.01 Morbid (severe) obesity due to excess calories (principal); Q43.3 Congenital malformations of intestinal fixation; G47.33 Obstructive sleep apnea (adult) (pediatric); F17.290 Nicotine dependence, other tobacco product, uncomplicated; Z71.6 Tobacco abuse counseling; K21.9 Gastro-esophageal reflux disease without esophagitis; I10 Essential (primary) hypertension; M19.90 Unspecified osteoarthritis, unspecified site; Z68.41 Body mass index [BMI] 40.0-44.9, adult; Z79.899 Other long term (current) drug therapy
CPT/HCPCS: 36415; 80048; 80053; 80061; 83036; 83525; 84443; 85014; 85018; 85025; 85610; 85730; 86140; 86850; 86900; 86901; 88304; 88305; 88307; 88342; A4649; C9088; C9145; J0131; J0690; J1100; J1170; J2250; J2405; J2704; J2795; J3010; J7120

== ENCOUNTER → 2023-06-01 08:50 | Outpatient (BNV) | payer OTHER, SELFPAY | PROVIDERS: Admitting Provider Surgery; PCP Family Medicine; Visit Provider Surgery | DX: E66.01 Morbid (severe) obesity due to excess calories (principal); Z68.41 Body mass index [BMI] 40.0-44.9, adult; K66.0 Peritoneal adhesions (postprocedural) (postinfection) | CPT/HCPCS: 43659; 43775; 99024 ==

== ENCOUNTER 2023-06-08 | Outpatient (REF) | payer OTHER, SELFPAY | END 2023-06-08 00:01 | disposition home or self-care (01) | LOC: CF | PROVIDERS: PCP Family Medicine; Visit Provider Physician Assistant Surgical | DX: E66.01 Morbid (severe) obesity due to excess calories (principal); I10 Essential (primary) hypertension; G47.30 Sleep apnea, unspecified; Z48.815 Encounter for surgical aftercare following surgery on the digestive system; Z71.3 Dietary counseling and surveillance; Z98.84 Bariatric surgery status | CPT/HCPCS: 99212 ==

== ENCOUNTER 2023-06-08 10:18 | Outpatient (AMB) | payer OTHER, SELFPAY ==
--- NOTE | 2023-06-08 10:52 | MHC.OFFVISWM ---
Intake VS Expanded 06/08/23 11:21 BP 120/57 L Blood Pressure Location Rt brachial Blood Pressure Position Sitting Pulse 54 Pulse Source Pulse Oximeter Temp 97.9 F Temperature Source Tympanic Pulse Oximetry 95 Oxygen Delivery Method Room Air Height 5 ft 8.5 in Weight 260 lb 9.6 oz BMI 39.0 Body Fat % 34.1 Body Fat Mass 123.2 Fat Free Mass 171.8 Visceral Fat Rating 19.0 Body Water % 47.3 Body Water Mass 123.2 Muscle Mass/Score 163.4 Basal Metabolic Rate/Score 2,357 Intake Visit Reasons: (OV) PO LSG 06/01/23 Allergies naproxen [NAPROXEN] Allergy (Unknown, Verified 06/08/23 11:27) UNKNOWN HPI HPI Comments History of Present Illness Details Patient is a pleasant 47-year-old male who returns the office today in follow-up. He is 7 days status post sleeve gastrectomy performed on 06/01/[address] eRis. Overall, he is doing well. Tolerating 3 celebrate 4 in 1 shakes with 1 scoop each in 8 oz of almond milk. He is additionally drinking 24-36 oz of Gatorade 0. He is moved his bowels and offers no complaints at today's visit. Of note, previously taking amlodipine and losartan for blood pressure. He states blood pressures have been 120s over 70s without any medications. [facility] Medical History DJD (degenerative joint disease) GERD (gastroesophageal reflux disease) Back pain Degenerative disc disease, lumbar History of fractured vertebra Elevated cholesterol Insomnia Sleep apnea Morbid obesity Back disorder HTN (hypertension) Surgical History Hx of hand surgery Social History Household Members: Children Housing: Apartment Are you a primary respiratory care assistant to a significant other at home: Yes Do you presently have visiting nurse or other home services: No Patient Tobacco Use Status: Current everyday Tobacco user e-Cigarette/Vaping Use: Currently Using Second Hand Smoke Exposure: No Physical Exam GI Other: Incisions are clean, dry, intact. Assessment & Plan Assessment & Plan (1) S/P laparoscopic sleeve gastrectomy: Code(s): Z98.84 - Bariatric surgery status Plan: POD 7 s/p LSG on 06/01/[address] Reis Weight loss prior to surgery was 30.5 pounds or 10 % TBWL. Original weight on 03/03/2023 was 304.8 pounds and op weight was 274.3 pounds. Be sure to text Dr Reis exactly 1 week after surgery your weight from your home scale so he can adjust your meal plan. Continue meal plan until f/u harinder Casper in 2 weeks May shower, no submersion in bath for another week Continue abdominal binder with activity and exercise for the next 2 weeks. Exercise prior to surgery was Treadmill, may resume No abdominal exercises for 6 weeks post operatively Will be emailed link to post op video for review Reminded of the pace of drinking, 2 mL per minute, 1 oz/15 min. Coding Level of Care Code Global (50333) Diagnoses S/P laparoscopic sleeve gastrectomy Z98.84
[2023-06-08 11:21] VITALS: BP 120/57; PULSE 54; TEMP 36.6; O2SAT 95; BMI 39.0
== END 2023-06-08 11:19 | disposition home or self-care (01) ==
PROVIDERS: PCP Family Medicine; Visit Provider Physician Assistant Surgical
DX: E66.9 Obesity, unspecified (principal); Z68.39 Body mass index [BMI] 39.0-39.9, adult; Z90.3 Acquired absence of stomach [part of]; Z98.84 Bariatric surgery status
CPT/HCPCS: 99024

== ENCOUNTER 2023-06-25 11:11 | Outpatient (AMB) | payer OTHER, SELFPAY ==
--- NOTE | 2023-06-25 11:13 | MHC.OFFVISWM ---
Intake VS Expanded 06/25/23 11:20 BP 130/70 Blood Pressure Location Rt brachial Blood Pressure Position Sitting Pulse 59 Pulse Source Pulse Oximeter Temp 97.5 F Temperature Source Temporal Artery Scan Pulse Oximetry 97 Oxygen Delivery Method Room Air Height 5 ft 8.5 in Weight 252 lb 3.2 oz BMI 37.8 Body Fat % 33.1 Body Fat Mass 83.4 Fat Free Mass 168.6 Visceral Fat Rating 18.0 Body Water % 49.3 Body Water Mass 124.2 Muscle Mass/Score 160.2 Basal Metabolic Rate/Score 2,303 Intake Visit Reasons: (OV) PO LSG 06/01/23 Manager Crisis Required: No Allergies naproxen [NAPROXEN] Allergy (Unknown, Verified 06/08/23 11:27) UNKNOWN Medication List - Last Reconciled 06/25/23 by JACOB Bucio pantoprazole 40 mg PO DAILY sucralfate 10 mL PO BID tramadol 50 mg PO Q6H PRN trazodone 75 mg PO BEDTIME PRN HPI HPI Comments History of Present Illness Details This?a?48?yo male who is s/p LSG without hiatal hernia repair on?06/01/2023. Presents for 1 month post op visit. Weight today is 252.2 pounds, with a BMI of 37.8. There has been a 52.6 pound weight loss,(initial weight 304.8 pounds) since starting the program on 03/03/2023 reflecting a 17.2 % total body weight loss and a weight loss of 22.1 pounds since surgery (operative weight 274.3 pounds) reflecting a 8% TBWL since surgery. No complaints of nausea, emesis, abdominal pain or reflux. Reports infrequent but normal bowel movements every 2-3 days. He states that last week he experienced an episode of lightheadedness. He did not pass out, but did feel dizzy. He states that he has been also using the celebrate rebuild. There was some confusion regarding the exact shake and scoops however he does consistently state that he has been doing 3 shakes with 2 scoops each daily. His water intake varies anywhere from 16 oz to 40 oz depending on what he is doing at work. Present meal plan includes: Celebrate 4 in 1, 2 scoops x 3 in almond milk 1 bar Drinking 20-40 oz daily ?Exercise routine includes: stationary bike, 3-4 x per week, 15-20 minutes [facility] Medical History DJD (degenerative joint disease) GERD (gastroesophageal reflux disease) Back pain Degenerative disc disease, lumbar History of fractured vertebra Elevated cholesterol Insomnia Sleep apnea Morbid obesity Back disorder HTN (hypertension) Surgical History S/P laparoscopic sleeve gastrectomy Hx of hand surgery Social History Household Members: Children Housing: Apartment Are you a primary field care coordinator to a significant other at home: Yes Do you presently have visiting nurse or other home services: No Alcohol intake: former Patient Tobacco Use Status: Current everyday Tobacco user e-Cigarette/Vaping Use: Currently Using Second Hand Smoke Exposure: No Review of Systems Const All systems reviewed & are unremarkable except as noted in HPI and below Physical Exam Const General: healthy appearing and no acute distress Resp Effort & Inspection: normal respiratory effort Auscultation: clear to auscultation bilaterally Cardio Rate: regular rate Rhythm: regular rhythm GI Auscultation: normal bowel sounds Extrem General: Yes normal to inspection Assessment & Plan Assessment & Plan (1) Obesity (BMI 30-39.9): Code(s): E66.9 - Obesity, unspecified Plan: Clarification of meal plan. Celebrate 4 in 1 shake with 2 scoops in 8 oz of almond milk at 9-11, 1-3 Celebrate rebuild with 2 scoops in 8 oz of almond milk at 7-9 Celebrate protein bar at 2-7 Increase water to 48 ozdaily Continue exercise bike. Text with any questions. Return to clinic 3 weeks. Coding Level of Care Code Global (94592) Diagnoses Obesity (BMI 30-39.9) E66.9
[2023-06-25 11:20] VITALS: BP 130/70; PULSE 59; TEMP 36.4; O2SAT 97; BMI 37.8
== END 2023-06-25 14:16 | disposition home or self-care (01) ==
PROVIDERS: PCP Family Medicine; Visit Provider Physician Assistant Surgical
DX: E66.9 Obesity, unspecified (principal)
CPT/HCPCS: 99024

== ENCOUNTER → 2023-06-25 11:11 | Outpatient (BNVA) | payer OTHER, SELFPAY | PROVIDERS: PCP Family Medicine; Visit Provider Physician Assistant Surgical | DX: E66.9 Obesity, unspecified (principal); Z68.37 Body mass index [BMI] 37.0-37.9, adult | CPT/HCPCS: 99212 ==

== ENCOUNTER 2023-07-23 14:01 | Outpatient (AMB) | payer OTHER, SELFPAY ==
[2023-07-23 13:52] VITALS: BMI 35.7
--- NOTE | 2023-07-23 13:52 | MHC.OFFVISWM ---
VS Expanded 07/23/23 13:52 Height 5 ft 8.5 in Weight 238 lb 5 oz BMI 35.7 Intake Visit Reasons: (tV) PO LSG 06/01/23 Assistant Signal Maintainer Required: No Allergies naproxen [NAPROXEN] Allergy (Unknown, Verified 06/08/23 11:27) UNKNOWN Medication List - Last Reconciled 07/23/23 by JACOB Bucio pantoprazole 40 mg PO DAILY sucralfate 10 mL PO BID tramadol 50 mg PO Q6H PRN trazodone 75 mg PO BEDTIME PRN HPI Comments Details: This?a?48?yo male who is s/p LSG without hiatal hernia repair on?06/01/2023. Presents for 2 month post op visit. Weight today is 238.5 pounds, with a BMI of 35.7. There has been a 66.3 pound weight loss,(initial weight 304.8 pounds) since starting the program on 03/03/2023 reflecting a 21.7 % total body weight loss and a weight loss of 35.8 pounds since surgery (operative weight 274.3 pounds) reflecting a 13% TBWL since surgery. No complaints of nausea, emesis, abdominal pain or reflux. Reports infrequent but normal bowel movements every 2-3 days. He states that he has no further lightheadedness and feels great. Back pain is continued but he is having some good days. He states he is scheduled to follow-up with his primary care physician in a few weeks. He states that his PCP was planning on referring him to pain management or a provider relations specialist. I offered him referral to our minimally invasive spine surgery Department here at [facility] and he states that he will see what his primary care physician has to say and then possibly take the referral from me if he wishes. We will discuss that at his next appointment. Overall he states that he has had a total improvement since his last visit and is very satisfied with his progress. Present meal plan includes: Celebrate 4 in 1 shake with 2 scoops in 8 oz of almond milk at 9-11, 1-3 Celebrate rebuild with 2 scoops in 8 oz of almond milk at 7-9 Celebrate protein bar at 2-7 Drinking 60 oz daily ?Exercise routine includes: stationary bike, 3 x per week, 20-25 min [facility] Medical History DJD (degenerative joint disease) GERD (gastroesophageal reflux disease) Back pain Degenerative disc disease, lumbar History of fractured vertebra Elevated cholesterol Insomnia Sleep apnea Morbid obesity Back disorder HTN (hypertension) Surgical History S/P laparoscopic sleeve gastrectomy Hx of hand surgery Social History Household Members: Children Housing: Apartment Are you a primary administrator health care facility to a significant other at home: Yes Do you presently have visiting nurse or other home services: No Alcohol intake: former Patient Tobacco Use Status: Current everyday Tobacco user e-Cigarette/Vaping Use: Currently Using Second Hand Smoke Exposure: No Telehealth Telehealth Telehealth Platform: Telephone Location of provider rendering services: other Location of patient: address on file Patient Identification confirmed using: Name, : Yes Telehealth method: voice only Patient verbally consented to treatment: Yes Patient verbally consented to billing insurance company: Yes Patient informed of any privacy concerns related to visit: Yes Minutes spent on Phone/Video with Pt.: 15 Assessment & Plan Assessment & Plan (1) S/P laparoscopic sleeve gastrectomy: Code(s): Z98.84 - Bariatric surgery status Category: Surgical Plan: Patient is making good progress. He is very satisfied with the meal plan and is feeling excellent. He will continue and increase his exercise as his tolerance improves. He will follow up in the office for his three-month postop appointment. He will text weekly and with any questions or concerns.
== END 2023-07-23 14:26 | disposition home or self-care (01) ==
LOC: HO.HBS 14:01
PROVIDERS: PCP Family Medicine; Visit Provider Physician Assistant Surgical
DX: E66.9 Obesity, unspecified (principal); Z68.35 Body mass index [BMI] 35.0-35.9, adult; Z90.3 Acquired absence of stomach [part of]; Z98.84 Bariatric surgery status
CPT/HCPCS: 99024

== ENCOUNTER → 2023-07-23 14:01 | Outpatient (BNVA) | payer OTHER, SELFPAY | PROVIDERS: PCP Family Medicine; Visit Provider Physician Assistant Surgical | DX: Z98.84 Bariatric surgery status (principal) | CPT/HCPCS: 99212 ==

== ENCOUNTER 2023-09-06 10:02 | Outpatient (AMB) | payer OTHER, SELFPAY ==
[2023-09-06 07:52] VITALS: BMI 34.2
--- NOTE | 2023-09-06 07:52 | A.OFFVIS_ITS ---
VS Expanded 09/06/23 07:52 Height 5 ft 8.5 in Weight 228 lb 5 oz BMI 34.2 Intake Visit Reasons: (tV) PO LSG 06/01/23 Customer Assistance Associate Required: No Allergies naproxen [NAPROXEN] Allergy (Unknown, Verified 06/08/23 11:27) UNKNOWN Medication List - Last Reconciled 09/06/23 by JACOB Bucio pantoprazole 40 mg PO DAILY tramadol 50 mg PO Q6H PRN trazodone 75 mg PO BEDTIME PRN HPI Comments Details: This?a?48?yo male who is s/p LSG without hiatal hernia repair on?06/01/2023. Presents for 3 month post op visit. Weight today is 228.5 pounds, with a BMI of 34.2. There has been a 76.3 pound weight loss,(initial weight 304.8 pounds) since starting the program on 03/03/2023 reflecting a 215 % total body weight loss and a weight loss of 45.8 pounds since surgery (operative weight 274.3 pounds) reflecting a 16.6% TBWL since surgery. No complaints of nausea, emesis, abdominal pain or reflux. Reports infrequent but normal bowel movements every 2-3 days. He states he feels like a new man. Significant increase in energy. sleeping better, everything is better Overall he states that he has had a total improvement since his last visit and is very satisfied with his progress. He states he started eating fruit and this has caused heartburn. grapes, oranges. Wants to add food. Present meal plan includes: Celebrate 4 in 1 shake with 2 scoops in 8 oz of almond milk at 9-11, 1-3 Celebrate rebuild with 2 scoops in 8 oz of almond milk at 7-9am Celebrate protein bar at 2-7 Drinking 128 oz daily, Working outside HVAC (very hot outside) ?Exercise routine includes: stationary bike, 3-5 x per week, 30 min [facility] Medical History DJD (degenerative joint disease) GERD (gastroesophageal reflux disease) Back pain Degenerative disc disease, lumbar History of fractured vertebra Elevated cholesterol Insomnia Sleep apnea Morbid obesity Back disorder HTN (hypertension) Surgical History S/P laparoscopic sleeve gastrectomy Hx of hand surgery Social History Household Members: Children Housing: Apartment Are you a primary transitional care manager to a significant other at home: Yes Do you presently have visiting nurse or other home services: No Alcohol intake: former Patient Tobacco Use Status: Current everyday Tobacco user e-Cigarette/Vaping Use: Currently Using Second Hand Smoke Exposure: No Telehealth Telehealth Telehealth Platform: Telephone Location of provider rendering services: other Location of patient: address on file Patient Identification confirmed using: Name, : Yes Telehealth method: voice only Patient verbally consented to treatment: Yes Patient verbally consented to billing insurance company: Yes Patient informed of any privacy concerns related to visit: Yes Minutes spent on Phone/Video with Pt.: 15 Assessment & Plan Assessment & Plan (1) S/P laparoscopic sleeve gastrectomy: Code(s): Z98.84 - Bariatric surgery status Category: Surgical Plan: Overall, doing very well, feeling very well. Energy has significantly improved. Sleeping has improved. He did go off recommended plan by adding in fresh fruit several weeks ago, this did cause increased reflux and heartburn. He does want to add food into his meal plan. We will change his meal plans slightly: Celebrate 4 in 1 shake with 2 scoops in 8 oz of almond milk at 7-9, 10-12 Celebrate protein bar at 1-4 Meal with 4 forks protein and 4 forks vegetables May add half cup fresh berries during the day if he wishes. He will text me this week or early next to let me know how he is doing with his meal at night. Discussed etiology of reflux post sleeve gastrectomy. Return to the office 1 month.
== END 2023-09-06 10:06 | disposition home or self-care (01) ==
LOC: HO.HBS 10:02
PROVIDERS: PCP Family Medicine; Visit Provider Physician Assistant Surgical
DX: E66.9 Obesity, unspecified (principal); Z68.34 Body mass index [BMI] 34.0-34.9, adult; Z90.3 Acquired absence of stomach [part of]; Z98.84 Bariatric surgery status
CPT/HCPCS: 99213

== ENCOUNTER → 2023-09-06 10:02 | Outpatient (BNVA) | payer OTHER, SELFPAY | PROVIDERS: PCP Family Medicine; Visit Provider Physician Assistant Surgical ==

== ENCOUNTER 2024-02-23 10:03 | Outpatient (REF) | payer OTHER, SELFPAY ==
[2024-02-23 11:22] LABS: MANUAL DIFF FLAG NO
[2024-02-23 11:26] LABS: Basophils Percent Auto 0.8 % (0-2); Eosinophils Absolute Auto 0.2 X10*3/uL (0.0-0.4); Eosinophils Percent Auto 3.5 % (0-4); Hematocrit 43.4 % (42.0-52.0); Hemoglobin 14.9 g/dl (14.0-18.0); Imm Gran Abs Auto 0.01 X10*3/uL (0.00-0.03); Imm Gran Pct Auto 0.2 % (0.0-0.4); Lymphocytes Absolute Auto 1.4 X10*3/uL (1.2-4.9); Lymphocytes Percent Auto 27.2 % (20-40); Mean Corpuscular HGB Conc 34.3 g/dl (31.0-36.0); Mean Corpuscular Hemoglobin 31.8 pg (27.0-33.0); Mean Corpuscular Volume 92.7 fL (80.0-98.0); Monocytes Absolute Auto 0.4 X10*3/uL (0.1-1.2); Monocytes Percent Auto 8.5 % (2-11); Neutrophils Absolute Auto 3.1 x10*3/uL (2.0-8.3); Neutrophils Percent Auto 59.8 % (45-73); Platelet Count 266 X10*3/uL (160-400); Red Blood Count 4.68 X10*6/uL (4.60-5.80); Red Cell Distribution Width 12.9 % (11.0-16.0); White Blood Count 5.2 X10*3/uL (4.8-10.8)
[2024-02-23 12:03] LABS: Alanine Aminotransferase 32 U/L (0-40); Albumin Level 4.2 g/dL (3.5-5.0); Alkaline Phosphatase 77 U/L (39-117); Anion Gap 9 (12-20); Aspartate Amino Transferase 30 U/L (5-37); Bilirubin Total 0.7 mg/dL (0.0-1.0); Blood Urea Nitrogen 12 mg/dL (9-16); Calcium 9.5 mg/dL (8.4-10.2); Carbon Dioxide 33 mmol/L (22-29); Chloride 105 mmol/L (96-108); Cholesterol 149 mg/dL (<200); Estimated Glomerular Filt Rate > 60; Glucose Random 90 mg/dL (60-115); HDL Cholesterol 55 mg/dL (>40); LDL Cholesterol Calculated 79 mg/dL (<100); Potassium 4.1 mmol/L (3.3-5.1); Sodium 143 mmol/L (135-145); Total Protein 7.1 g/dL (6.5-8.0); Triglycerides 76 mg/dL (<150)
[2024-02-23 12:35] LABS: Folate 18.3 ng/mL (> or = 4.0); Vitamin B12 632 pg/mL (200-900)
== END 2024-02-23 10:04 | disposition home or self-care (01) ==
LOC: HO.HHCL 10:03
PROVIDERS: Visit Provider Nurse Practitioner Family
DX: K21.9 Gastro-esophageal reflux disease without esophagitis (principal); Z98.84 Bariatric surgery status
CPT/HCPCS: 36415; 80053; 80061; 82607; 82746; 85025

== ENCOUNTER 2024-06-09 09:53 | Outpatient (REF) | payer MEDICAID, SELFPAY ==
[2024-06-09 11:47] LABS: MANUAL DIFF FLAG NO
[2024-06-09 12:00] LABS: Basophils Absolute Auto 0.1 X10*3/uL (0.0-0.2); Basophils Percent Auto 1.2 % (0-2); Eosinophils Absolute Auto 0.1 X10*3/uL (0.0-0.4); Hematocrit 45.7 % (42.0-52.0); Hemoglobin 15.8 g/dl (14.0-18.0); Imm Gran Abs Auto 0.02 X10*3/uL (0.00-0.03); Imm Gran Pct Auto 0.4 % (0.0-0.4); Lymphocytes Absolute Auto 1.6 X10*3/uL (1.2-4.9); Lymphocytes Percent Auto 32.1 % (20-40); Mean Corpuscular HGB Conc 34.6 g/dl (31.0-36.0); Mean Corpuscular Hemoglobin 31.5 pg (27.0-33.0); Mean Corpuscular Volume 91.2 fL (80.0-98.0); Mean Platelet Volume 10.4 fL (9.4-12.4); Monocytes Absolute Auto 0.5 X10*3/uL (0.1-1.2); Monocytes Percent Auto 9.3 % (2-11); Neutrophils Absolute Auto 2.8 x10*3/uL (2.0-8.3); Platelet Count 273 X10*3/uL (160-400); Red Blood Count 5.01 X10*6/uL (4.60-5.80); Red Cell Distribution Width 12.6 % (11.0-16.0); White Blood Count 5.1 X10*3/uL (4.8-10.8)
[2024-06-09 12:16] LABS: Anion Gap 12 (12-20); Blood Urea Nitrogen 14 mg/dL (9-16); Calcium 9.4 mg/dL (8.4-10.2); Carbon Dioxide 25 mmol/L (22-29); Chloride 107 mmol/L (96-108); Estimated Glomerular Filt Rate > 60; Glucose Random 87 mg/dL (60-115); Sodium 140 mmol/L (135-145)
[2024-06-09 12:29] LABS: TSH reflex Free T4 0.78 uIU/mL (0.32-4.0)
== END 2024-06-09 09:54 | disposition home or self-care (01) ==
LOC: HO.HHCL 09:53
PROVIDERS: Visit Provider Nurse Practitioner
DX: E16.2 Hypoglycemia, unspecified (principal); R53.83 Other fatigue
CPT/HCPCS: 36415; 80048; 84443; 85025